=== PATIENT | male | born 1985 | race Caucasian/White ===

== ENCOUNTER 2022-09-08 07:38 | Inpatient (IN) ==
[2022-09-08] MEDS ORDERED: ASPIRIN CHEW 324 MG PO STA (08:01)
[2022-09-08] MEDS ORDERED: SODIUM CHLORIDE 0.9% 1000ML 1,000 ML IV STA (08:01)
--- NOTE | 2022-09-08 08:08 | Emergency Department Note ---
History of Present Illness General Chief complaint: Shoulder Pain Stated complaint: SEVERE SHOULDER PAIN Time Seen by Provider: 09/08/22 07:52 History of Present Illness Maximum Pain Intensity: 7 37-year-old male who presents to the emergency department for evaluation of severe bilateral shoulder pain. He also reports awakening around 4 AM this morning with abdominal cramping, mucus stools and some blood when wiping. The patient has not noticed any nausea, diaphoresis or dizziness. The patient reports that he did notice some discomfort in the center of his chest as well. He does report a strong family history of coronary artery disease. The patient denies any known history of heart disease, hyperlipidemia or hypertension. He does take medicine for anxiety. Patient also admits to being an alcoholic. Yesterday he drank 3 beers throughout the day, and had a mixed drink at bedtime. The patient denies any pain radiating into the back. He currently rates his discomfort a 7 out of 10, describing it is a pain that seems to move from his shoulders down into his arms. It does not extend into the neck, nor does he have a headache. He denies any shortness of breath. Home Medications Medication Instructions Recorded Confirmed Type escitalopram oxalate 10 mg tablet 10 mg PO 1XD 09/08/22 09/08/22 History Allergies Allergy/AdvReac Type Severity Reaction Status Date / Time Penicillins Allergy Unknown Verified 09/08/22 11:29 sertraline AdvReac Drowsy Verified 09/08/22 11:29 Past Med/Surg History Medical History Anxiety Surgical History No significant past surgical history Social History Smoking Status: Former smoker Second Hand Exposure: No; Do You Dip or Chew Tobacco: No; Tobacco Cessation Education Requested by Patient: No Hx Alcohol Use: Yes Alcohol type: beer and hard liquor Hx Substance Use: No Preferred Language: Icelandic Communication Ability: Effective Olive Brine Tester Required: No Beliefs That Will Affect Care: None marital status: Current Living Situation: Family current occupational status: employed Other Information That Helps Us Care for You: No Feels Safe at Home: Yes Safety Concerns: Feels Safe At This Time Assistive Devices: Glasses Review of Systems 10 system review was performed and was negative except for pertinent positives and negatives as indicated in history of present illness Physical Exam Vital Signs Vital Signs - 24 hr 09/08/22 07:44 09/08/22 08:01 09/08/22 08:49 Temperature 36.7 C Temperature Source Temporal Artery Scan Pulse Rate 92 H Pulse Rate [Apical] 73 Pulse Rate from SpO2 Sensor Respiratory Rate 20 18 Respiratory Effort / Characteristics Non-Labored Respiratory Depth Normal Respiratory Pattern Regular Blood Pressure 139/86 Blood Pressure [Left Arm] 132/98 Blood Pressure Mean 103 Blood Pressure Mean [Left Arm] 109 Blood Pressure Position Sitting Pulse Oximetry 99 98 98 Oxygen Delivery Method Room Air Room Air Nasal Cannula Oxygen Flow Rate 2 Sepsis Recent Fever Within 48 Hours No Sepsis New/Unexplained Change in Mental Status No Sepsis Action Taken by Nursing No Action Required 09/08/22 08:18 09/08/22 08:18 09/08/22 08:25 Temperature Temperature Source Pulse Rate 109 H 103 H Pulse Rate [Apical] Pulse Rate from SpO2 Sensor 112 H Respiratory Rate 18 24 Respiratory Effort / Characteristics Respiratory Depth Respiratory Pattern Blood Pressure 138/110 H Blood Pressure [Left Arm] Blood Pressure Mean 119 Blood Pressure Mean [Left Arm] Blood Pressure Position Pulse Oximetry 100 Oxygen Delivery Method Oxygen Flow Rate Sepsis Recent Fever Within 48 Hours Sepsis New/Unexplained Change in Mental Status Sepsis Action Taken by Nursing 09/08/22 08:25 09/08/22 08:30 09/08/22 08:30 Temperature Temperature Source Pulse Rate 108 H Pulse Rate [Apical] Pulse Rate from SpO2 Sensor Respiratory Rate 23 Respiratory Effort / Characteristics Respiratory Depth Respiratory Pattern Blood Pressure 137/87 132/90 Blood Pressure [Left Arm] Blood Pressure Mean 103 104 Blood Pressure Mean [Left Arm] Blood Pressure Position Pulse Oximetry Oxygen Delivery Method Oxygen Flow Rate Sepsis Recent Fever Within 48 Hours Sepsis New/Unexplained Change in Mental Status Sepsis Action Taken by Nursing 09/08/22 08:40 09/08/22 08:40 09/08/22 08:45 Temperature Temperature Source Pulse Rate 102 H 109 H Pulse Rate [Apical] Pulse Rate from SpO2 Sensor Respiratory Rate 20 15 Respiratory Effort / Characteristics Respiratory Depth Respiratory Pattern Blood Pressure 132/101 H Blood Pressure [Left Arm] Blood Pressure Mean 111 Blood Pressure Mean [Left Arm] Blood Pressure Position Pulse Oximetry Oxygen Delivery Method Oxygen Flow Rate Sepsis Recent Fever Within 48 Hours Sepsis New/Unexplained Change in Mental Status Sepsis Action Taken by Nursing CONSTITUTIONAL: Healthy and well nourished. Alert and oriented X 3. Patient appears in moderate discomfort. HEENT: Normocephalic, atraumatic. Pupils equal, round and reactive. No sc leral icterus or conjunctival injection/pallor. NECK: Full active range of motion without discomfort. LYMPHATICS: No cervical chain adenopathy. RESPIRATORY: Clear to auscultation bilaterally with no wheezing, crackles, rhonchi or stridor. CARDIOVASCULAR: Regular rate and rhythm with no murmurs, rubs or gallops. GASTROINTESTINAL: Bowel sounds present in all quadrants. Patient has mild upper abdominal tenderness to palpation without rigidity, guarding or rebound. No McBurney's point tenderness. Negative CVA tenderness. MUSCULOSKELETAL: Full range of motion of all joints without discomfort. No worsening discomfort with range of motion of the shoulders. No tenderness to palpation through the thoracolumbar spine. INTEGUMENTARY: No rash or other significant dermatologic conditions noted. HEMATOLOGIC: No ecchymosis or petechiae. PSYCHIATRIC: Positive affect. NEUROLOGIC: No focal neurologic deficits noted. Course Course Patient history and physical exam were performed. Nurses notes were reviewed for vital signs were reviewed, showing an elevated blood pressure. Patient is not tachycardic or febrile. IV access was established, and labs were drawn. The patient refused any analgesics or antiemetics. The patient was hydrated with a liter of normal saline. An ECG was performed, showing a STEMI. The patient was administered aspirin 324 mg chew. The patient was also ordered and administered Ativan 2 mg IVP after he started to develop hypertension and tachycardia from anxiety. The patient was placed on campus monitor. Review of labs showed a normal CBC. Coagulation studies and D-dimer were normal. CMP and lipase were grossly normal. High sensitive troponin was 1620.5. A portable vini st x-ray was normal. Immediately after seeing the patient's ECG, a heart code alert was called. The case was also discussed with Dr. Iraheta, ED attending physician, who also evaluated the patient. Dr. Iraheta also did a stool Hemoccult that was negative. Please see her dictation for further treatment provided and discussion with Dr. Dempsey with the Emergency Medical Service Coordinator. Please see hospitalist and c ardiology dictations for further treatment and final disposition. Administered Medications Sodium Chloride (Nss 1000ml) 1,000 mls @ 100 mls/hr IV .Q10H RODRÍGUEZ Stop: 09/08/22 19:44 Last Admin: 09/08/22 12:15 Dose: 100 mls/hr Documented By: ENRIKE Eptifibatide (Integrilin) 75 mg in 100 mls @ 0 mls/hr IV .Q0M [facility]; Protocol Stop: 09/09/22 06:14 Last Admin: 09/08/22 15:06 Dose: 2.03 mcg/kg/min, 15 mls/hr Documented By: ENRIKE Co-signed By: GRETEL Nitroglycerin/Dextrose (Nitroglycerin/D5w 100 Mcg/Ml) 250 mls @ 15 mls/hr IV .[id number] [facility]; Protocol Stop: 10/08/22 13:59 Last Titration: 09/08/22 14:26 Dose: 25 mcg/min, 15 mls/hr Documented By: Titration: 09/08/22 14:21 Dose: 20 mcg/min, 12 mls/hr Documented By: Titration: 09/08/22 14:16 Dose: 15 mcg/min, 9 mls/hr Documented By: Titration: 09/08/22 14:11 Dose: 10 mcg/min, 6 mls/hr Documented By: Admin: 09/08/22 14:06 Dose: 5 mcg/min, 3 mls/hr Documented By: ENRIKE Co-signed By: DULCE MARIA Metoprolol Tartrate (Metoprolol Tartrate 25 Mg Tab) 12.5 mg PO Q8 RODRÍGUEZ Stop: 10/08/22 13:59 Last Admin: 09/08/22 12:45 Dose: 12.5 mg Documented By: ENRIKE Miscellaneous (Icu Protocol For Hyperglycemia) 1 each N/A ACHS [facility] Stop: 09/10/22 11:29 Last Admin: 09/08/22 13:41 Dose: 1 each Documented By: ENRIKE Morphine Sulfate (Morphine Sulfate 2 Mg/Ml Carp) 2 mg IV Q4H PRN PRN Reason: Chest Pain Stop: 09/22/22 11:18 Last Admin: 09/08/22 13:26 Dose: 2 mg Documented By: Admin: 09/08/22 12:07 Dose: 2 mg Documented By: ENRIKE Discontinued Medications Aspirin (Aspirin Chew 324 Mg) 324 mg PO NOW STA Stop: 09/08/22 08:02 Last Admin: 09/08/22 08:23 Dose: 324 mg Documented By: SHEILA Eptifibatide (Eptifibatide 2 Mg/Ml 10 Ml Vial (Emergency Medical Service Coordinator Use Only)) Confirm Administered Dose 20 mg IV .STK-MED ONE Stop: 09/08/22 09:12 Last Admin: 09/08/22 10:57 Dose: 8.5 ml Documented By: MARGE Eptifibatide (Eptifibatide 0.75 Mg/Ml 75mg Vial (Emergency Medical Service Coordinator Use Only)) Confirm Administered Dose 75 mg IV .STK-MED ONE Stop: 09/08/22 09:12 Last Admin: 09/08/22 10:57 Dose: 75 mg Documented By: MARGE Eptifibatide (Eptifibatide 2 Mg/Ml 10 Ml Vial (Emergency Medical Service Coordinator Use Only)) Confirm Administered Dose 20 mg IV .STK-MED ONE Stop: 09/08/22 09:13 Last Admin: 09/08/22 10:58 Dose: 8.5 ml Documented By: MARGE Fentanyl Citrate (Fentanyl Citrate 100 Mcg/2 Ml Vial) Confirm Administered Dose 100 mcg .ROUTE .STK-MED ONE Stop: 09/08/22 08:34 Last Increment: 09/08/22 10:56 Dose: 75 mcg Documented By: MARGE Heparin Sodium (Porcine) (Heparin (Porcine) 1000 Unit/Ml 10 Ml (Emergency Medical Service Coordinator Use Only)) Confirm Administered Dose 10,000 units .ROUTE .STK-MED ONE Stop: 09/08/22 08:33 Last Admin: 09/08/22 10:56 Dose: 10,000 units Documented By: MARGE Heparin Sodium/Sodium Chloride (Heparin In Nss Infusion 1000 Unit/500 Ml (2 U/Ml) Bag) Confirm Administered Dose 3,000 units IV .STK-MED ONE Stop: 09/08/22 08:34 Last Admin: 09/08/22 10:57 Dose: 3,000 units Documented By: MARGE Sodium Chloride (Nss 1000ml) 1,000 mls @ 999 mls/hr IV .Q1H1M STA Stop: 09/08/22 09:01 Last Admin: 09/08/22 08:21 Dose: 999 mls/hr Documented By: SHEILA Famotidine 20 mg/ Syringe 5 mls @ 2.5 mls/min IV NOW STA Stop: 09/08/22 08:21 Last Admin: 09/08/22 13:43 Dose: Not Given Documented By: ENRIKE Lidocaine HCl (Lidocaine 1% Local 20 Ml Vial) Confirm Administered Dose 60 ml .ROUTE .STK-MED ONE Stop: 09/08/22 08:48 Last Admin: 09/08/22 12:15 Dose: Not Given Documented By: ENRIKE Lorazepam (Lorazepam 1 Mg/1 Ml Syr) 1 mg IV NOW STA; Protocol Stop: 09/08/22 08:16 Last Admin: 09/08/22 08:35 Dose: 1 mg Documented By: DUDLEY Lorazepam (Lorazepam 1 Mg/1 Ml Syr) 1 mg IV NOW STA; Protocol Stop: 09/08/22 08:21 Last Admin: 09/08/22 08:23 Dose: 1 mg Documented By: SHEILA Midazolam HCl (Midazolam Hcl 1 Mg/Ml 2ml Vial) Confirm Administered Dose 2 mg .ROUTE .STK-MED ONE Stop: 09/08/22 08:34 Last Admin: 09/08/22 10:57 Dose: 2 mg Documented By: MARGE Miscellaneous (Stat Iv Infusion Titration Per Protocol) 1 each N/A NOW STA Stop: 09/08/22 13:53 Last Admin: 09/08/22 14:09 Dose: 1 each Documented By: ENRIKE Nicardipine HCl (Nicardipine Hcl Inj 2.5 Mg/Ml 10 Ml Amp) Confirm Administered Dose 25 mg .ROUTE .STK-MED ONE Stop: 09/08/22 08:33 Last Admin: 09/08/22 10:56 Dose: 25 mg Documented By: MARGE Nitroglycerin (Nitroglycerin Sl 0.4 Mg/Tab Tab) Confirm Administered Dose 0.4 mg .ROUTE .STK-MED ONE Stop: 09/08/22 08:20 Last Admin: 09/08/22 08:21 Dose: 0.4 mg Documented By: SHEILA Nitroglycerin (Nitroglycerin Sl 0.4 Mg/Tab Tab) Confirm Administered Dose 0.4 mg .ROUTE .STK-MED ONE Stop: 09/08/22 13:22 Last Admin: 09/08/22 13:23 Dose: 0.4 mg Documented By: ENRIKE Nitroglycerin/Dextrose (Nitroglycerin/D5w 100mcg/Ml 20ml Syr) Confirm A dministered Dose 2,000 mcg .ROUTE .STK-MED ONE Stop: 09/08/22 08:34 Last Admin: 09/08/22 10:57 Dose: 2,000 mcg Documented By: MARGE Nitroglycerin/Dextrose (Nitroglycerin/D5w 100 Mcg/Ml Btl) Confirm Administered Dose 25 mg .ROUTE .STK-MED ONE Stop: 09/08/22 14:00 Last Admin: 09/08/22 14:09 Dose: Not Given Documented By: ENRIKE Ticagrelor (Ticagrelor 90 Mg Tab) Confirm Administered Dose 180 mg .ROUTE .STK- MED ONE Stop: 09/08/22 09:00 Last Admin: 09/08/22 10:57 Dose: 180 mg Documented By: MARGE Critical Care Time Critical Care Time: Yes Total Critical Care Time: 35 I have personally spent approximately 35 minutes of critical care time in the direct management of this patient. This includes bedside care, interpretation of diagnostic studies, and testing, discussion with consultants, patient, and family members, and other required patient management activities. This 35 minutes is in excess of all separately billable procedures. Medical Decision Making Medical Records Attestation: I reviewed the patient's medical records. Home Medications Current Medication List: was personally reviewed by me Laboratory Data Attestation: I reviewed the patient's lab results. Result diagrams: 09/08/22 08:15 09/08/22 08:15 Lab Results 09/08/22 09/08/22 09/08/22 Range/Units 08:15 08:15 08:15 WBC 9.74 (4.8-10.8) K/ul RBC 5.20 (4.63-6.08) M/uL Hgb 15.6 (14.0-18.0) g/dl Hct 44.8 (40.1-51.0) % MCV 86.2 (80.0-100.0) fL MCH 30.0 (25.0-34.0) pg MCHC 34.8 (32.0-36.0) g/dL RDW Std Deviation 40.8 (36.4-46.3) fL RDW Coeff of Jem 13.0 (11.5-14.5) % Plt Count 255 (130-400) K/uL MPV 10.5 (9.4-12.4) fL Immature Gran % (Auto) 0.3 % Neut % (Auto) 77.4 % Lymph % (Auto) 14.8 % [place] % (Auto) 6.4 % Eos % (Auto) 0.7 % Baso % (Auto) 0.4 % Neut # (Auto) 7.54 H (1.4-6.5) K/uL Lymph # (Auto) 1.44 (1.2-3.4) K/uL [place] # (Auto) 0.62 (0.24-0.82) K/uL Eos # (Auto) 0.07 (0-0.50) K/uL Baso # (Auto) 0.04 (0-0.2) K/uL Immature Gran # (Auto) 0.03 H (0.00-0.02) K/uL PT 11.1 (9.0-12.0) Seconds INR 1.0 (0.9-1.1) APTT 23.1 (21.0-31.0) Seconds PTT Ratio 0.8 Activ Coag Time Kaolin (94-140) SECONDS D-Dimer < 190 (0-500) ug/L FEU Sodium 137 (136-145) mmol/L Potassium 3.7 (3.5-5.1) mmol/L Chloride 102 (98-107) mmol/L Carbon Dioxide 21 (21-32) mmol/L Anion Gap 14 H (3-11) BUN 14 (6-23) mg/dl Creatinine 0.91 (0.6-1.4) mg/dl Est Cr Clr Drug Dosing 131.6 ml/min Est GFR ( Amer) 126.1 ml/min Est GFR (Non-Af Amer) 108.8 ml/min BUN/Creatinine Ratio 15.4 (10-20) Glucose 110 H (70-99(Fasting)) mg/dl Calcium 10.9 H (8.5-10.1) mg/dl Total Bilirubin 0.6 (0.2-1.0) mg/dl AST 31 (13-39) U/L ALT 46 (7-52) U/L Alkaline Phosphatase 81 (34-104) U/L Troponin I High Sens 97.7 H* (0-20) pg/ml Total Protein 8.1 (6.0-8.3) gm/dl Albumin 4.8 (3.4-5.0) gm/dl Globulin 3.3 (2.5-4.0) gm/dl Albumin/Globulin Ratio 1.5 (0.9-2) Lipase 20 (11-82) U/L SARS-CoV-2 (PCR) (Negative) Influenza Type A (PCR) (Neg) Influenza Type B (PCR) (Neg) RSV (RT-PCR) (Neg) 09/08/22 09/08/22 Range/Units 08:40 09:32 WBC (4.8-10.8) K/ul RBC (4.63-6.08) M/uL Hgb (14.0-18.0) g/dl Hct (40.1-51.0) % MCV (80.0-100.0) fL MCH (25.0-34.0) pg MCHC (32.0-36.0) g/dL RDW Std Deviation (36.4-46.3) fL RDW Coeff of Jem (11.5-14.5) % Plt Count (130-400) K/uL MPV (9.4-12.4) fL Immature Gran % (Auto) % Neut % (Auto) % Lymph % (Auto) % [place] % (Auto) % Eos % (Auto) % Baso % (Auto) % Neut # (Auto) (1.4-6.5) K/uL Lymph # (Auto) (1.2-3.4) K/uL [place] # (Auto) (0.24-0.82) K/uL Eos # (Auto) (0-0.50) K/uL Baso # (Auto) (0-0.2) K/uL Immature Gran # (Auto) (0.00-0.02) K/uL PT (9.0-12.0) Seconds INR (0.9-1.1) APTT (21.0-31.0) Seconds PTT Ratio Activ Coag Time Kaolin 329 H (94-140) SECONDS D-Dimer (0-500) ug/L FEU Sodium (136-145) mmol/L Potassium (3.5-5.1) mmol/L Chloride (98-107) mmol/L Carbon Dioxide (21-32) mmol/L Anion Gap (3-11) BUN (6-23) mg/dl Creatinine (0.6-1.4) mg/dl Est Cr Clr Drug Dosing ml/min Est GFR ( Amer) ml/min Est GFR (Non-Af Amer) ml/min BUN/Creatinine Ratio (10-20) Glucose (70-99(Fasting)) mg/dl Calcium (8.5-10.1) mg/dl Total Bilirubin (0.2-1.0) mg/dl AST (13-39) U/L ALT (7-52) U/L Alkaline Phosphatase (34-104) U/L Troponin I High Sens (0-20) pg/ml Total Protein (6.0-8.3) gm/dl Albumin (3.4-5.0) gm/dl Globulin (2.5-4.0) gm/dl Albumin/Globulin Ratio (0.9-2) Lipase (11-82) U/L SARS-CoV-2 (PCR) NEGATIVE (Negative) Influenza Type A (PCR) Negative (Neg) Influenza Type B (PCR) Negative (Neg) RSV (RT-PCR) Negative (Neg) Imaging Data Attestation: I personally reviewed and interpreted this imaging study as follows: My Impression: Single view chest x-ray does not show evidence for lung consolidations, pneumothorax or cardiac prominence. Radiologist report was also reviewed. Radiologist's Impression: Chest X-Ray 09/08/22 08:03 SINGLE VIEW CHEST CLINICAL HISTORY: Atypical chest pain. Diarrhea FINDINGS: An AP, portable, upright chest radiograph is obtained. No prior studies are available for comparison at the time of dictation. The examination is degraded by portable technique and apical lordotic positioning. The cardiomediastinal silhouette is unremarkable. The lungs and pleural spaces are clear. No pneumothorax is seen. The bony thorax is grossly intact. IMPRESSION: No acute cardiopulmonary abnormality. ACT 112: Negative or not required by law. Electronically signed by: Shen Smith M.D. 09/08/2022 8:42 AM ECG Data Attestation: I personally reviewed and interpreted this ECG as follows: Indication: + abdominal pain and + chest pain Rate (beats per minute): 85 Rhythm: + sinus with SA ECG ST segments: + ST elevation (Anterolateral) Comparison ECG Date: no prior available Blood Pressure Blood Pressure Findings: Elevated blood pressure Blood Pressure Disposition: elevated BP felt to be situational MDM Narrative Cardiac monitoring: An order was placed for continuous cardiac monitoring. The monitor shows an initial rate of 85 bpm with a STEMI. hall monitor history was reviewed throughout the evaluation, and no additional dysrhythmias were noted. Patient presents the emergency department with complaint of bilateral shoulder pain. His ECG shows evidence for STEMI. The patient was administered oral aspirin. Further heparin or other blood thinners were deferred to cardiology service. Additional work-up today does not show evidence for obvious cardiac failure, pneumonia, pneumothorax, electrolyte abnormality, pancreatitis, cholecystitis or hepatitis. Impression & Plan STEMI (ST elevation myocardial infarction), Bilateral shoulder pain, Rectal bleed Discharge Plan Visit Data Chief Complaint: Shoulder Pain Stated Complaint: SEVERE SHOULDER PAIN ED Provider: Lona Iraheta ED Midlevel Provider: Rober Haywood Discharge Problem: STEMI (ST elevation myocardial infarction), Bilateral shoulder pain, Rectal bleed Discharge Instructions Interventions: ED Discharge Assessment Last Done: 09/08/22 08:57
[2022-09-08] MEDS ORDERED: LORazepam 1 MG/1 ML SYR IV STA ×2 (08:15→08:20)
[2022-09-08] MEDS ORDERED: NITROGLYCERIN SL 0.4 MG/TAB TAB ONE ×2 (08:19→13:21)
[2022-09-08] MEDS ORDERED: FAMOTIDINE 20 MG in SYRINGE 3 ML IV STA (08:20)
[2022-09-08 08:26] LABS: Basophils # (auto) 0.04 K/uL (0-0.2); Basophils % (auto) 0.4 %; Eosinophils # (auto) 0.07 K/uL (0-0.50); Eosinophils % (auto) 0.7 %; Hematocrit (blood only) 44.8 % (40.1-51.0); Hemoglobin 15.6 g/dl (14.0-18.0); Immature Granulocytes # (auto) 0.03 K/uL (0.00-0.02); Immature Granulocytes % (auto) 0.3 %; Lymphocytes # (auto) 1.44 K/uL (1.2-3.4); Lymphocytes % (auto) 14.8 %; Mean Corpuscular Hgb Conc 34.8 g/dL (32.0-36.0); Mean Corpuscular Volume 86.2 fL (80.0-100.0); Mean Platelet Volume 10.5 fL (9.4-12.4); Monocytes # (auto) 0.62 K/uL (0.24-0.82); Monocytes % (auto) 6.4 %; Neutrophils # (auto) 7.54 K/uL (1.4-6.5); Neutrophils % (auto) 77.4 %; Platelet Count 255 K/uL (130-400); RDW Standard Deviation 40.8 fL (36.4-46.3); White Blood Count 9.74 K/ul (4.8-10.8)
[2022-09-08] MEDS ORDERED: niCARdipine HCL INJ 2.5 MG/ML 10 ML AMP ONE (08:32)
[2022-09-08] MEDS ORDERED: HEPARIN (PORCINE) 1000 UNIT/ML 10 ML (CATH LAB USE ONLY) ONE (08:32)
[2022-09-08] MEDS ORDERED: fentaNYL citrate 100 MCG/2 ML VIAL ONE (08:33)
[2022-09-08] MEDS ORDERED: MIDAZOLAM HCL 1 MG/ML 2ML VIAL ONE (08:33)
[2022-09-08] MEDS ORDERED: NITROGLYCERIN/D5W 100MCG/ML 20ML SYR ONE (08:33)
[2022-09-08 08:38] LABS: D Dimer < 190 ug/L FEU (0-500); Partial Thromboplastin Ratio 0.8; Partial Thromboplastin Time 23.1 Seconds (21.0-31.0); Prothrombin Time 11.1 Seconds (9.0-12.0)
--- NOTE | 2022-09-08 08:45 | XRay Report ---
SINGLE VIEW CHEST CLINICAL HISTORY: Atypical chest pain. Diarrhea FINDINGS: An AP, portable, upright chest radiograph is obtained. No prior studies are available for c omparison at the time of dictation. The examination is degraded by portable technique and apical lord otic positioning. The cardiomediastinal silhouette is unremarkable. The lungs and pleural spaces are clear. No pneumothorax is seen. The bony thorax is grossly intact. IMPRESSION: No acute cardiopulmonary abnormality. ACT 112: Negative or not required by law. Electronically signed by: Shen Smith M.D. 09/08/2022 8:42 AM
[2022-09-08] MEDS ORDERED: LIDOCAINE 1% LOCAL 20 ML VIAL ONE (08:47)
[2022-09-08 08:57] LABS: Albumin Globulin Ratio 1.5 (0.9-2); Albumin Level 4.8 gm/dl (3.4-5.0); BUN Creatinine Ratio 15.4 (10-20); Bilirubin,Total 0.6 mg/dl (0.2-1.0); Calcium 10.9 mg/dl (8.5-10.1); Creatinine Clr Calc Pharmacy 131.6 ml/min; Est GFR (African American) 126.1 ml/min; Est GFR (Non-African American) 108.8 ml/min; Globulin 3.3 gm/dl (2.5-4.0); Potassium 3.7 mmol/L (3.5-5.1); Total Protein 8.1 gm/dl (6.0-8.3)
[2022-09-08] MEDS ORDERED: TICAGRELOR 90 MG TAB ONE (08:59)
--- NOTE | 2022-09-08 09:02 | Pre Anesthesia Assessment ---
Date of Service September 08, 2022 Pre Sedation Assessment Vital Signs Temp Pulse Pulse Resp BP BP Pulse Ox 09/08/22 08:49 73 18 132/98 98 09/08/22 08:01 98 09/08/22 07:44 98.1 F 92 H 20 139/86 99 O2 Del Method O2 Flow Rate 09/08/22 08:49 Nasal Cannula 2 09/08/22 08:01 Room Air 09/08/22 07:44 Room Air Cardiovascular RRR, no murmur, no edema Respiratory normal respiratory effort, lungs clear to auscultation Pre-Sedation Airway Assessment Smoking Status: Former smoker Hx Sleep Apnea: No Hx Difficult Intubation: No Short, Thick Neck: No Thyromental Distance: > or= 3.5 Finger Breadths Mallampati Class: III ASA: ASA4 Procedure Planning Contraindications for Sedation: none Current Medications Reviewed: Yes Notes The planned sedation has been discussed with the patient. Informed Consent was obtained. I have identified the patient, determined the appropriateness of sedation and have assessed the patient immediately prior to the procedure. All medicine(s) and interventions are by my order.
[2022-09-08 09:08] LABS: Troponin I High Sensitivity 97.7 pg/ml (0-20)
[2022-09-08] MEDS ORDERED: EPTIFIBATIDE 2 MG/ML 10 ML VIAL (CATH LAB USE ONLY) IV ONE ×2 (09:11→09:12)
[2022-09-08] MEDS ORDERED: EPTIFIBATIDE 0.75 MG/ML 75MG VIAL (CATH LAB USE ONLY) IV ONE (09:11)
[2022-09-08 10:02] LABS: Influenza A virus by PCR Negative (Neg); Influenza B virus by PCR Negative (Neg); RSV by PCR Negative (Neg); SARS CoV2 RNA(COVID-19) Ceph NEGATIVE (Negative)
[2022-09-08] MEDS ORDERED: ONDANSETRON INJ 2 MG/ML 2 ML VIAL IV PRN (10:35)
[2022-09-08] MEDS ORDERED: EPTIFIBATIDE BOLUS/DRIP IV STA (10:35)
[2022-09-08] MEDS ORDERED: STAT IV Infusion **Titration per Protocol STA ×2 (10:35→13:52)
[2022-09-08] MEDS ORDERED: Patient's ALLERGY Info needs ENTERED SCH (11:00)
[2022-09-08] MEDS ORDERED: LORazepam 0.5 MG TAB PO PRN (11:00)
--- NOTE | 2022-09-08 11:00 | Cardiology Consultation ---
Date of Consultation September 08, 2022 Assessment & Plan (1) STEMI (ST elevation myocardial infarction): Plan Presentation consistent with anterior STEMI with suspected occlusion in wraparound LAD. Recommend proceeding with emergent cardiac catheterization and likely primary PCI. No apparent contraindications to procedure. Discussed risks, benefits, alternatives of procedure with patient and they are willing to proceed. Further recommendations pending findings of coronary angiography. History of Present Illness History of Present Illness 37-year-old man here with acute chest pain and ECG concerning for acute OH. Patient seen emergently in the ED after heart alert activated upon arrival. No prior cardiac history. Cardiac risk factors include prior tobacco use. Reports his father had heart issues but unsure exactly what they were. Other medical issues include anxiety, heavy alcohol use. Woke up this morning around 4 AM, with bilateral shoulder pain, diarrhea and feeling generally unwell. Eventually symptoms progressed with numbness in his arms (R>L) and some substernal chest pain. Arrived in ED approximately 4 hours after symptom onset. ECG showed sinus rhythm with anterior ST elevations and subtle inferior ST elevations. Hemodynamically stable. Given nitroglycerin, Ativan, aspirin in ED. Social history: , 2 kids ages 4 and 5, with twins. Works for a local [employer]. Intermittent tobacco use history. Last smoked about 5 months ago. Ongoing heavy alcohol use Patient History Medical History Anxiety Surgical History No significant past surgical history Social History Smoking Status: Former smoker Hx Alcohol Use: Yes Beliefs That Will Affect Care: Spiritual marital status: Current Living Situation: Spouse and Family current occupational status: employed Feels Safe at Home: Yes Review of Systems Review of Systems: Not completed in the setting of emergent situation Physical Exam Physical Exam: General: Uncomfortable HEENT: Sclerae anicteric Lungs: Clear anteriorly Cardiac: Tachycardic, regular Vascular: 2+ radial Abdomen: Soft, nontender Extremities: Well perfused, no peripheral edema Neuro: Nonfocal Psych: Alert orient x3, normal affect and mood Results & Data ([facility]) Vital Signs (Past 12 Hours) Vital Signs Temp Pulse Pulse Resp BP BP Pulse Ox 09/08/22 08:49 73 18 132/98 98 09/08/22 08:01 98 09/08/22 07:44 98.1 F 92 H 20 139/86 99 O2 Del Method O2 Flow Rate 09/08/22 08:49 Nasal Cannula 2 09/08/22 08:01 Room Air 09/08/22 07:44 Room Air PG Care Time/CCT Total # of Minutes Spent Total Time Spent with Patient: Total time spent is greater than 50% in coordination of care (as documented) at patient's floor/unit and/or counseling patient: Coding Level of Care Code 18349 Inpt Consult Level 4 Diagnoses STEMI (ST elevation myocardial infarction) I21.3
--- NOTE | 2022-09-08 11:01 | Post Anesthesia Assessment ---
Date of Service September 08, 2022 Post Sedation Assessment Vital Signs Temp Pulse Pulse Resp BP BP Pulse Ox 09/08/22 08:49 73 18 132/98 98 09/08/22 08:01 98 09/08/22 07:44 98.1 F 92 H 20 139/86 99 O2 Del Method O2 Flow Rate 09/08/22 08:49 Nasal Cannula 2 09/08/22 08:01 Room Air 09/08/22 07:44 Room Air Recovery Score Activity: Moves 4 extremities Respiration: Deep Breath/Cough Circulation: +/-20% PreAnes Value Consciousness: Fully Awake Oxygen Saturation: O2 needed for >90% Discharge Sedation Level of Care: Fast Track Phase II Post Sedation Plan On clinical assessment, the patient appears to have tolerated the sedation without complications. Patient is recovering as anticipated. Patient will continue to be monitored by nursing and may be discharged when sedation discharge criteria are met per below protocol. Upon Completions of procedure up to 15 minutes continue every 5 minute vital signs and the P.A.R. score; then discharge to a Phase I or Fast Track to Phase II per the following guidelines: * Discharge Patient to appropriate Phase II area if PAR is 8 or greater or return to pre- procedure baseline. The post - procedure orders will be as d irected. * If PAR score is less than 8 or not return to pre-procedure baseline then patient will follow Phase I monitoring till PAR is reached for Phase II. The Phase I may be done in procedure room or may call to secure a Phase I area. * If naloxone or flumazenil are used for reversal, hold in Phase I for continued monitoring from when last reversal dose was given for a minimum of 60 minutes or longer pending the nurse and/or physician discretion of patient condition before discharge to Phase II. Please call the Sedation Physician to re-evaluate and complete post-note for discharge to Phase II area. Do NOT discharge from procedure sedation or Phase 1 until post- sedation evaluation note is complete by procedure /sedation MD Sedation Discharge Instructions to be given to the patient at discharge to home.
--- NOTE | 2022-09-08 11:05 | History & Physical Report ---
Date of Service September 08, 2022 Assessment & Plan (1) STEMI (ST elevation myocardial infarction): Plan: Patient is status post heart alert with drug-eluting stent to the mid LAD. Patient has distal apical thrombus. Dr. Dempsey is assisting in co managing this patient, will remain on Integrilin for 6 hours Patient is on aspirin plus Brilinta, metoprolol tartrate 125 every 8 and Cozaar 25 and atorvastatin 80 Pending hemoglobin A1c Trend troponins till peak (2) Alcohol use: Plan: Patient has a history of alcohol use we will watch him for signs of withdrawal, patient says sometimes gets shaky in the morning when he does not drink the day before (3) Anxiety: Plan: Patient typically is on no home medications will have as needed Ativan both for anxiety and alcohol withdrawal possibility Admission and Anticipated Discharge Date Admission Date: September 08, 2022 History of Present Illness Chief Complaint: 37-year-old male presents to the ER on 09/08/2022 with severe bilateral shoulder pain that awoke him from sleep around 4 AM patient has a history of alcohol abuse and anxiety initial troponin was 97.7, initial EKG had ST elevation inferiorly and laterally with reciprocal changes. Patient was taken to Power Superintendent under heart alert status for acute RI, patient received 1 drug-eluting stent to the early mid LAD but he has heavy clot burden remained hemodynamically stable although has residual thrombus in the apical LAD. Patient was taken to the ICU post procedure Primary Care Provider: NO PCP Allergies Allergy/AdvReac Type Severity Reaction Status Date / Time Penicillins Allergy Unknown Verified 09/08/22 11:29 sertraline AdvReac Drowsy Verified 09/08/22 11:29 Past Med/Surg History Medical History Anxiety Surgical History No significant past surgical history Social History Smoking Status: Former smoker Hx Alcohol Use: Yes Beliefs That Will Affect Care: Spiritual marital status: Current Living Situation: Spouse and Family current occupational status: employed Feels Safe at Home: Yes Review of Systems Review of Systems: Mild distress and fatigue no headache, no visual changes no speech or swallowing issues Still having some residual chest pain, not described as pressure or palpitations no shortness of breath, cough or wheezes no abdominal pain, nausea or vomiting, diarrhea or constipation no dysuria, hematuria or frequency no focal joint pain or swelling no back pain, CVA tenderness or radicular pain T band in place on his right wrist no focal signs of weakness or numbness or altered sensation no complaints of anxiety or depression.. Physical Exam Physical Exam: The patient appeared well nourished and normally developed. Vital signs as documented. Head exam is normocephalic atraumatic Neck is without JVD, thyromegaly, or carotid bruits. Lungs are clear to auscultation, no focal loss of breath sounds Cardiac exam, Rhythm is regular.. No murmurs, rubs or gallops. Abdominal exam reveals normal bowel sounds, soft non tender, no masses Extremities are nonedematous and both pedal pulses are present Right hand has good distal capillary refill and sensation Neurologic exam is alert and oriented, no focal loss of strength or sensation Skin is without bruises or rashes Psychologically is without concerns for anxiety or depression.. Results & Data Results & Data ([facility]) Vital Signs (Past 12 Hours) Vital Signs Temp Pulse Pulse Resp BP BP Pulse Ox 09/08/22 08:49 73 18 132/98 98 09/08/22 08:01 98 09/08/22 07:44 98.1 F 92 H 20 139/86 99 O2 Del Method O2 Flow Rate 09/08/22 08:49 Nasal Cannula 2 09/08/22 08:01 Room Air 09/08/22 07:44 Room Air Diagnostic Findings Chest X-Ray 09/08/22 08:03 SINGLE VIEW CHEST CLINICAL HISTORY: Atypical chest pain. Diarrhea FINDINGS: An AP, portable, upright chest radiograph is obtained. No prior studies are available for comparison at the time of dictation. The examination is degraded by portable technique and apical lordotic positioning. The cardiomediastinal silhouette is unremarkable. The lungs and pleural spaces are clear. No pneumothorax is seen. The bony thorax is grossly intact. IMPRESSION: No acute cardiopulmonary abnormality. Electronically signed by: Shen Smith M.D. 09/08/2022 8:42 AM ECG Additional Comments: Normal sinus rhythm with ST elevation inferior laterally with some reciprocal T wave inversion this is preprocedure Code Status & VTE Plan VTE Prophylaxis Plan VTE Prophylaxis will be ordered: Yes PG Care Time/CCT Total # of Minutes Spent Total Time Spent with Patient: Total time spent is greater than 50% in coordination of care (as documented) at patient's floor/unit and/or counseling patient: Coding Level of Care Code 95700 Initial Inpt Care Lvl 2 Diagnoses STEMI (ST elevation myocardial infarction) I21.3 Alcohol use Z78.9 Anxiety F41.9
--- NOTE | 2022-09-08 11:17 | Cardiac Catheterization ---
[facility] Data: Service Operations Manager Cardiac Status Clinical evaluation leading to the procedure CAD Presenation: STEMI Anginal Classification: CCS IV Diagnostic Physicians Name: Joseph Dempsey MD Closure Device Recommendations: PCI without planned CABG Cardiac Cath Procedure Full Procedure Date September 08, 2022 Pre-Procedure Diagnosis Pre-Procedure Diagnosis: STEMI AUC Score AUC Score: 9 Post-Procedure Diagnosis Post-Procedure Diagnosis: Severe CAD, Successful PCI and Normal Intracardiac Pressures Procedure(s) Performed Procedure(s) Performed: Coronary Angiography, Left Heart Cath, Drug Eluting Stent and IVUS Fund Controller Joseph Dempsey MD Estimated Blood Loss Estimated Blood Loss: 20 Medication(s) Medication(s): Fentanyl, Heparin, Integrilin, Lidocaine 1%, Nicardipine, Nitroglycerin and Versed Medication(s): Ticagrelor Summary of Findings Indication: STEMI/Heart Alert Access: 6 Fr right radial artery Catheters: EBU 3.5 guide, diagnostic JR4 Findings: LM -normal caliber, no significant disease LAD -large caliber, 95% earlymid stenosis with LV thrombus burden and COLLEEN II distal flow. Apical LAD 100% occluded. Medium D1, D2 without significant disease. Circumflex -medium caliber, angiographically normal RCA -dominant, large caliber, no significant disease LVEDP -11 -- PCI -- Antithrombotic therapy: Heparin, ticagrelor, Integrilin Procedure: Left main cannulated with EBU 3.5 guide BMW wire passed across lesion into distal vessel Mid LAD lesion predilated with 2.5 compliant balloon Apical LAD gently dilated with 2.0 balloon Due to heavy thrombus burden IC Integrilin administered [place] wire placed into first diagonal [place] IVUS catheter used to assess extent of disease, vessel sizing Pullback revealed localized thrombus and earlymid segment just after takeoff of D1. No other significant proximal LAD, left main disease. Dilated lesion stented with 4.0 x 18 mm [place] drug-eluting stent beginning just after takeoff of D1 Stent post-dilated with 4.5 noncompliant balloon IC vasodilators administered for spasm COLLEEN-3 flow through stent but residual apical LAD occlusion Repeat IVUS assessment of apical LAD revealed no significant atherosclerosis or thrombus to apex. Wire exchanged for long BMW and additional vasodilators administered to apical vessel via OTW balloon Gentle balloon inflation along entire length of apical LAD. Minimal extension of contrast around apex Patient chest pain-free at this time decision made to complete procedure and continue IV Integrilin Post procedure COLLEEN 3 flow to distal LAD, stent well expanded with minimal residual stenosis. Arterial Closure: TR band Summary: 1. Anterior STEMI 2. 95% acute earlymid LAD with heavy thrombus burden and occluded LAD at the apex 3. No significant non-culprit vessel coronary artery disease 4. Normal intracardiac filling pressure 5. PCI of earlymid LAD with single drug-eluting stent (4.0 x 18 mm [place]; postdilated with 4.5 NC). Residual thrombus in apical LAD despite IC vasodilators/apical LAD angioplasty Recommendations: Admit to ICU for continued monitoring Loaded with ticagrelor 180 mg in Service Operations Manager Continue Integrilin for 6 hours Continue dual-antiplatelet therapy for at least 1 year. Trend troponins until peak, Check Echo Uptitrate beta-nick/ARB as BP allows High-dose statin Consult cardiac Rehab Hemodynamics Rest Ao:: 116/81/101 Final Ao: 119/85/100 LV: 111/11 Recommendations Recommendations: PCI without planned CABG Specimens Specimens: None Radiation Exposure (mGy) 2728 Contrast (mls) 120 Anesthesia Moderate [id number] Procedural Complication(s) None Disposition ICU I attest to the content of the Intraoperative Record and any orders documented therein. Any exceptions are noted below. [facility] Card Cath Procedure Codes Cardiac Catheterization Procedure 1: Cardiovascular Cath Procedures: 21139 Coronaries and LHC (+/-LV) Therapeutic Services & Ancillary Procedure 1: Cardiovascular Tx and Anc Procedures: 76452 IV Ultrasound (Coronary or Graft) Moderate Sedation Procedure 1: Sedation/Anesthesia: 69513 Mod Sedation by the same physician;Init15 Min Child Age 5 & Up Procedure 2: Sedation/Anesthesia: 95017 Mod Sedation by the same physician; Ea [id number] Minutes Stenting Procedure 1: Cardiovascular Stent Procedures: 90525 Perc transluminal revascularization of acute sub/total occl, aMI PG Care Time/CCT Total # of Minutes Spent Total Time Spent with Patient: Total time spent is greater than 50% in coordination of care (as documented) at patient's floor/unit and/or counseling patient:
[2022-09-08] MEDS ORDERED: ICU Protocol for HYPERglycemia SCH (11:30)
[2022-09-08] MEDS: MoRPHine SULFATE 2 MG/ML CARP IV PRN ×4 (12:07→20:24)
[2022-09-08] MEDS ORDERED: SODIUM CHLORIDE 0.9% 1000ML 1,000 ML IV SCH (12:15)
[2022-09-08] MEDS: METOPROLOL TARTRATE 25 MG TAB PO SCH ×2 (12:45→21:30)
--- NOTE | 2022-09-08 13:00 | Critical Care Consultation ---
Date of Consultation September 08, 2022 Assessment & Plan (1) STEMI (ST elevation myocardial infarction): Plan Impression: 37-year-old male without significant past medical history presents with acute coronary syndrome status post drug-eluting stent to the mid LAD with residual thrombus. He is currently having residual chest pain here in the ICU. Recommendations: 1. ST elevation myocardial infarction status post drug-eluting stent. Continue Integrilin for the distal thrombus. He is on Brilinta and aspirin. He is having residual chest pain. We will provide morphine now and follow. If he has continued chest pain, I will repeat his EKG and discussed with cardiology althou gh not unexpected to have residual pain given the distal thrombus. He is hemodynamically stable. 2. We will uptitrate metoprolol and add WILD inhibitor as tolerated. Statin per cardiology. 3. Await echocardiogram. Trend troponins. 4. Advised the patient that I would not recommend nicotine replacement in the setting of acute coronary syndrome. Smoking cessation recommended. 5. We will continue to observe in the ICU 24 hours postcardiac catheterization. Thanks for the opportunity participating in the care of this patient. Feel free to contact us with questions or concerns History of Present Illness Attending Physician: Braydon Jacob MD History of Present Illness Asked by blade operator to assist in evaluation management this patient presenting with acute coronary syndrome status post drug-eluting stent to the LAD. History is obtained from review electronic medical record as well as discussion with the patient his at bedside. The patient is a 37-year-old male with a remote history of tobacco abuse who presented to the emergency room this morning with bilateral shoulder pain. He also had chest discomfort. EKG showed findings concerning for ST elevation myocardial infarction and heart alert was called. He was taken to the Measurement Operator. Cardiac catheterization showed a 95% mid stenosis with thrombus and a 100% occlusion of the apical LAD. Patient underwent PCI with drug-eluting stent to the mid LAD. The patient had residual thrombus in the apical LAD despite intracoronary vasodilators and angioplasty. He was loaded on Brilinta and started on Integrilin with plans to continue that for 6 hours. Aspirin was also used. He was started on a beta-nick ARB with echocardiogram and serial troponins and high-dose statin to follow. When I assessed the patient continues to complain of chest pain. He states he is never really been pain-free. He is not yet received morphine. In addition he is hypertensive and has not yet received his metoprolol dose. 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 No significant exposures. He does have a family history of coronary disease but this manifested in his father in his 50s. Allergies Allergy/AdvReac Type Severity Reaction Status Date / Time Penicillins Allergy Unknown Verified 09/08/22 11:29 sertraline AdvReac Drowsy Verified 09/08/22 11:29 Home Medications Medication Instructions Recorded Confirmed Type escitalopram oxalate 10 mg tablet 10 mg PO 1XD 09/08/22 09/08/22 History Patient History Medical History Anxiety Surgical History No significant past surgical history Social History Smoking Status: Former smoker Second Hand Exposure: No; Do You Dip or Chew Tobacco: No; Tobacco Cessation Education Requested by Patient: No Hx Alcohol Use: Yes Alcohol type: beer and hard liquor Hx Substance Use: No Preferred Language: Chinese Communication Ability: Effective Explosives Handler Required: No Beliefs That Will Affect Care: None marital status: Current Living Situation: Family current occupational status: employed Other Information That Helps Us Care for You: No Feels Safe at Home: Yes Safety Concerns: Feels Safe At This Time Assistive Devices: Glasses Review of Systems Review of Systems: All systems reviewed & are unremarkable except as noted in Subjective Physical Exam Constitutional: WD/WN, vitals as above Neck: trachea midline, no thyromegaly Respiratory: normal respiratory effort, lungs clear to auscultation Cardiovascular: RRR, no murmur, no edema Gastrointestinal (Abdomen): normal bowel sounds, soft, nontender, no hepatosplenomegaly Musculoskeletal: Extremities: extremities normal to inspection Skin: no rashes, warm and dry Neurologic: Nonfocal exam Lymphatic: no cervical lymphadenopathy Results & Data Results & Data ([facility]) Vital Signs (Past 12 Hours) Vital Signs Temp Pulse Pulse Resp BP BP Pulse Ox 09/08/22 11:45 75 19 98 09/08/22 11:45 136/100 09/08/22 11:30 90 22 98 09/08/22 11:30 145/114 H 09/08/22 11:15 82 16 99 09/08/22 11:15 142/101 H 09/08/22 11:00 90 18 99 09/08/22 11:00 150/96 H 09/08/22 10:45 78 17 09/08/22 10:45 131/85 09/08/22 10:43 74 13 09/08/22 10:43 130/89 09/08/22 10:42 81 11 L 09/08/22 08:45 109 H 15 09/08/22 08:40 102 H 20 09/08/22 08:40 132/101 H 09/08/22 08:30 108 H 23 09/08/22 08:30 132/90 09/08/22 08:25 137/87 09/08/22 08:25 103 H 24 09/08/22 08:18 109 H 18 100 09/08/22 08:18 138/110 H 09/08/22 10:41 84 09/08/22 10:52 36.9 C 94 H 16 131/85 09/08/22 08:49 73 18 132/98 98 09/08/22 08:01 98 09/08/22 07:44 36.7 C 92 H 20 139/86 99 O2 Del Method O2 Flow Rate 09/08/22 11:45 09/08/22 11:45 09/08/22 11:30 09/08/22 11:30 09/08/22 11:15 09/08/22 11:15 09/08/22 11:00 09/08/22 11:00 09/08/22 10:45 09/08/22 10:45 09/08/22 10:43 09/08/22 10:43 09/08/22 10:42 09/08/22 08:45 09/08/22 08:40 09/08/22 08:40 09/08/22 08:30 09/08/22 08:30 09/08/22 08:25 09/08/22 08:25 09/08/22 08:18 09/08/22 08:18 09/08/22 10:41 09/08/22 10:52 Room Air 09/08/22 08:49 Nasal Cannula 2 09/08/22 08:01 Room Air 09/08/22 07:44 Room Air Critical Care Results & Data Vital Signs (Past 12 Hours) Vital Signs Temp Pulse Pulse Resp BP BP Pulse Ox 09/08/22 11:45 75 19 98 09/08/22 11:45 136/100 09/08/22 11:30 90 22 98 09/08/22 11:30 145/114 H 09/08/22 11:15 82 16 99 09/08/22 11:15 142/101 H 09/08/22 11:00 90 18 99 09/08/22 11:00 150/96 H 09/08/22 10:45 78 17 09/08/22 10:45 131/85 09/08/22 10:43 74 13 09/08/22 10:43 130/89 09/08/22 10:42 81 11 L 09/08/22 08:45 109 H 15 09/08/22 08:40 102 H 20 09/08/22 08:40 132/101 H 09/08/22 08:30 108 H 23 09/08/22 08:30 132/90 09/08/22 08:25 137/87 09/08/22 08:25 103 H 24 09/08/22 08:18 109 H 18 100 09/08/22 08:18 138/110 H 09/08/22 10:41 84 09/08/22 10:52 36.9 C 94 H 16 131/85 09/08/22 08:49 73 18 132/98 98 09/08/22 08:01 98 09/08/22 07:44 36.7 C 92 H 20 139/86 99 O2 Del Method O2 Flow Rate 09/08/22 11:45 09/08/22 11:45 09/08/22 11:30 09/08/22 11:30 09/08/22 11:15 09/08/22 11:15 09/08/22 11:00 09/08/22 11:00 09/08/22 10:45 09/08/22 10:45 09/08/22 10:43 09/08/22 10:43 09/08/22 10:42 09/08/22 08:45 09/08/22 08:40 09/08/22 08:40 09/08/22 08:30 09/08/22 08:30 09/08/22 08:25 09/08/22 08:25 09/08/22 08:18 09/08/22 08:18 09/08/22 10:41 09/08/22 10:52 Room Air 09/08/22 08:49 Nasal Cannula 2 09/08/22 08:01 Room Air 09/08/22 07:44 Room Air Lab & Micro Results (Past 24 Hours) RBC 5.20 M/uL (4.63-6.08) 09/08/22 WBC 9.74 K/ul (4.8-10.8) 09/08/22 Hgb 15.6 g/dl (14.0-18.0) 09/08/22 Hct 44.8 % (40.1-51.0) 09/08/22 MCV 86.2 fL (80.0-100.0) 09/08/22 MCH 30.0 pg (25.0-34.0) 09/08/22 MCHC 34.8 g/dL (32.0-36.0) 09/08/22 RDW Standard Deviation 40.8 fL (36.4-46.3) 09/08/22 RDW Coefficient of Variation 13.0 % (11.5-14.5) 09/08/22 Plt Count 255 K/uL (130-400) 09/08/22 MPV 10.5 fL (9.4-12.4) 09/08/22 Neutrophils (%) (Auto) 77.4 % 09/08/22 Lymphocytes (%) (Auto) 14.8 % 09/08/22 Monocytes # (Auto) 0.62 K/uL (0.24-0.82) 09/08/22 Eosinophils # (Auto) 0.07 K/uL (0-0.50) 09/08/22 Immature Granulocyte % (Auto) 0.3 % 09/08/22 Neutrophils # (Auto) 7.54 K/uL (1.4-6.5) H 09/08/22 Lymphocytes # (Auto) 1.44 K/uL (1.2-3.4) 09/08/22 Monocytes # (Auto) 0.62 K/uL (0.24-0.82) 09/08/22 Eosinophils # (Auto) 0.07 K/uL (0-0.50) 09/08/22 Basophils # (Auto) 0.04 K/uL (0-0.2) 09/08/22 Immature Granulocyte # (Auto) 0.03 K/uL (0.00-0.02) H 09/08 Na 137 mmol/L (136-145) 09/08/22 K 3.7 mmol/L (3.5-5.1) 09/08/22 Cl 102 mmol/L (98-107) 09/08/22 CO2 21 mmol/L (21-32) 09/08/22 Anion Gap 14 (3-11) H 09/08/22 BUN 14 mg/dl (6-23) 09/08/22 Creatinine 0.91 mg/dl (0.6-1.4) 09/08/22 Estimated GFR ( Amer) 126.1 ml/min 09/08/22 Estimated GFR (Non-Af Amer) 108.8 ml/min 09/08/22 BUN/Creatinine Ratio 15.4 (10-20) 09/08/22 Glu 110 mg/dl (70-99(Fasting)) H 09/08/22 Ca 10.9 mg/dl (8.5-10.1) H 09/08/22 Total Bilirubin 0.6 mg/dl (0.2-1.0) 09/08/22 AST 31 U/L (13-39) 09/08/22 ALT 46 U/L (7-52) 09/08/22 Alkaline Phosphatase 81 U/L (34-104) 09/08/22 TP 8.1 gm/dl (6.0-8.3) 09/08/22 Albumin 4.8 gm/dl (3.4-5.0) 09/08/22 Globulin 3.3 gm/dl (2.5-4.0) 09/08/22 Albumin/Globulin Ratio 1.5 (0.9-2) 09/08/22 Calcium Level 10.9 mg/dl (8.5-10.1) H 09/08/22 08:15 Prothromb Time International Ratio 1.0 (0.9-1.1) 09/08/22 08:1 5 Diagnostic Findings (Past 24 Hours) Chest X-Ray 09/08/22 08:03 SINGLE VIEW CHEST CLINICAL HISTORY: Atypical chest pain. Diarrhea FINDINGS: An AP, portable, upright chest radiograph is obtained. No prior studies are available for comparison at the time of dictation. The examination is degraded by portable technique and apical lordotic positioning. The cardiomediastinal silhouette is unremarkable. The lungs and pleural spaces are clear. No pneumothorax is seen. The bony thorax is grossly intact. IMPRESSION: No acute cardiopulmonary abnormality. ACT 112: Negative or not required by law. Electronically signed by: Shen Smith M.D. 09/08/2022 8:42 AM I & O Totals 24 Hours 09/07/22 09/08/22 09/09/22 06:59 06:59 06:59 Intake Total 100 / 100 Output Total 400 / 400 Balance -300 / -300 Cumulative 09/08/22 07:38 thru 09/08/22 11:01 Intake Total 100 Output Total 400 Balance -300 RT Ventilator Mngmt (Last Documented) Ventilator Ordered Settings Respiratory Rate 19 09/08/22 11:45 Ventilator - PT Measurements Respiratory Rate 19 Coding Level of Care Code 77497 Inpt Consult Level 4 Diagnoses STEMI (ST elevation myocardial infarction) I21.3
[2022-09-08] MEDS: ICU Protocol for HYPERglycemia SCH ×3 (13:41→21:30)
[2022-09-08] MEDS ORDERED: NITROGLYCERIN/D5W 100 MCG/ML BTL ONE (13:59)
[2022-09-08] MEDS: NITROGLYCERIN/D5W 100MCG/ML 250 ML IV SCH (14:06)
[2022-09-08] MEDS ORDERED: Nursing to Pharmacy Communication SCH (15:00)
[2022-09-08] MEDS: EPTIFIBATIDE 75 MG/100 ML VIAL IV SCH ×2 (15:06→22:24)
--- NOTE | 2022-09-08 15:18 | Electrocardiogram Report ---
Test Reason : Blood Pressure : / mmHG Vent. Rate : 085 BPM Atrial Rate : 085 BPM P-R Int : 148 ms QRS Dur : 088 ms QT Int : 368 ms P-R-T Axes : 050 020 060 degrees QTc Int : 437 ms Normal sinus rhythm with sinus arrhythmia Acute Anterior infarct Abnormal ECG No previous ECGs available Confirmed by Michael Shen ([id number]) on 09/08/2022 3:18:37 PM Referred By: REFERRED SELF Confirmed By:Michael Shen
--- NOTE | 2022-09-08 15:23 | Electrocardiogram Report ---
Test Reason : Blood Pressure : / mmHG Vent. Rate : 105 BPM Atrial Rate : 105 BPM P-R Int : 154 ms QRS Dur : 086 ms QT Int : 350 ms P-R-T Axes : 052 023 066 degrees QTc Int : 462 ms Sinus tachycardia Acute Anterior infarct Abnormal ECG When compared with ECG of 08-SEP-2022 08:09, No significant change Confirmed by Michael Shen ([id number]) on 09/08/2022 3:23:25 PM Referred By: REFERRED SELF Confirmed By:Michael Shen
--- NOTE | 2022-09-08 15:33 | Electrocardiogram Report ---
Test Reason : Blood Pressure : / mmHG Vent. Rate : 097 BPM Atrial Rate : 097 BPM P-R Int : 158 ms QRS Dur : 086 ms QT Int : 360 ms P-R-T Axes : 051 019 051 degrees QTc Int : 457 ms Normal sinus rhythm Acute Anterior infarct Abnormal ECG When compared with ECG of 08-SEP-2022 08:34, No significant change Confirmed by Michael Shen ([id number]) on 09/08/2022 3:32:59 PM Referred By: REFERRED SELF Confirmed By:Michael Shen
[2022-09-08] MEDS: ICU ELECTROLYTE REPLACEMENT PROTOCOL SCH (19:19)
[2022-09-08 19:25] LABS: Appearance Urine Clear (Clear); Bilirubin Urine Negative (Negative); Blood Urine Negative (Negative); Color Urine Yellow; Glucose Urine UA Negative (Negative); Ketones Urine Negative (Negative); Leukocyte Esterase Urine Negative (Negative); Nitrite Urine Negative (Negative); Protein Urine Negative (Negative); Specific Gravity Urine 1.044 (1.000-1.030); Urobilinogen Urine Negative (Negative); pH Urine 8.5 (4.5-7.5)
[2022-09-08] MEDS: ACETAMINOPHEN 325 MG TAB PO PRN (19:46)
[2022-09-08 19:59] LABS: Amphetamines+Metham, Urine Neg (Neg); Barbiturates, Urine Neg (Neg); Benzodiazepine, Urine Pos (Neg); Cocaine, Urine Neg (Neg); MDMA (Ecstacy), Urine Neg (Neg); Methadone, Urine Neg (Neg); Opiate, Urine Pos (Neg); Phencyclidine, Urine Neg (Neg)
[2022-09-08] MEDS: LORazepam 0.5 MG in SYRINGE 0 ML IV PRN (20:29)
[2022-09-08] MEDS: TICAGRELOR 90 MG TAB PO SCH (21:30)
[2022-09-09] MEDS: NITROGLYCERIN/D5W 100MCG/ML 250 ML IV SCH ×3 (02:57→21:56)
[2022-09-09] MEDS: ACETAMINOPHEN 325 MG TAB PO PRN (03:36)
[2022-09-09] MEDS: MoRPHine SULFATE 2 MG/ML CARP IV PRN ×7 (03:38→22:39)
[2022-09-09 03:45] LABS: Basophils # (auto) 0.01 K/uL (0-0.2); Basophils % (auto) 0.1 %; Eosinophils % (auto) 0.9 %; Hematocrit (blood only) 39.3 % (40.1-51.0); Hemoglobin 13.5 g/dl (14.0-18.0); Immature Granulocytes # (auto) 0.03 K/uL (0.00-0.02); Immature Granulocytes % (auto) 0.3 %; Lymphocytes # (auto) 2.11 K/uL (1.2-3.4); Lymphocytes % (auto) 19.9 %; Mean Corpuscular Hemoglobin 30.2 pg (25.0-34.0); Mean Corpuscular Hgb Conc 34.4 g/dL (32.0-36.0); Mean Corpuscular Volume 87.9 fL (80.0-100.0); Mean Platelet Volume 10.3 fL (9.4-12.4); Monocytes # (auto) 0.97 K/uL (0.24-0.82); Monocytes % (auto) 9.2 %; Neutrophils # (auto) 7.36 K/uL (1.4-6.5); Neutrophils % (auto) 69.6 %; Platelet Count 220 K/uL (130-400); RDW Coefficient of Variation 13.4 % (11.5-14.5); RDW Standard Deviation 43.4 fL (36.4-46.3); Red Blood Count 4.47 M/uL (4.63-6.08); White Blood Count 10.58 K/ul (4.8-10.8)
[2022-09-09 04:08] LABS: BUN Creatinine Ratio 17.9 (10-20); Calcium 9.1 mg/dl (8.5-10.1); Chol HDL Ratio 3.3 (0-5); Creatinine Clr Calc Pharmacy 144.1 ml/min; Est GFR (African American) 131.5 ml/min; Est GFR (Non-African American) 113.4 ml/min; Magnesium 1.8 mg/dl (1.7-2.4); Phosphorus 3.5 mg/dl (2.5-4.9); Potassium 3.8 mmol/L (3.5-5.1)
[2022-09-09] MEDS: ICU ELECTROLYTE REPLACEMENT PROTOCOL SCH ×2 (04:24→17:59)
[2022-09-09] MEDS: EPTIFIBATIDE 75 MG/100 ML VIAL IV SCH (05:01)
[2022-09-09] MEDS: MAGNESIUM OXIDE 400 MG TAB PO SCH ×2 (06:06→08:00)
[2022-09-09] MEDS: METOPROLOL TARTRATE 25 MG TAB PO SCH ×4 (06:06→21:56)
[2022-09-09] MEDS: POTASSIUM CHLORIDE CRTAB 20 MEQ TABCR PO SCH ×2 (06:07→08:00)
--- NOTE | 2022-09-09 07:20 | Electrocardiogram Report ---
Test Reason : Blood Pressure : / mmHG Vent. Rate : 091 BPM Atrial Rate : 091 BPM P-R Int : 154 ms QRS Dur : 082 ms QT Int : 360 ms P-R-T Axes : 067 041 059 degrees QTc Int : 442 ms Normal sinus rhythm Possible Left atrial enlargement ST elevation, consider early repolarization, pericarditis, or injury Borderline ECG When compared with ECG of 08-SEP-2022 11:03, No significant change was found Confirmed by Joseph Dupree ([id number]) on 09/09/2022 7:19:45 AM Referred By: REFERRED SELF Confirmed By:Dinesh Dupree
--- NOTE | 2022-09-09 07:34 | XCELERA ---
[id number]
[2022-09-09 07:48] LABS: Estimated Average Glucose 120 mg/dl; Hemoglobin A1C 5.8 % (4.5-5.6)
[2022-09-09] MEDS: ATORVASTATIN 40 MG TAB PO SCH (08:00)
[2022-09-09] MEDS: TICAGRELOR 90 MG TAB PO SCH ×2 (08:00→20:12)
[2022-09-09] MEDS: ASPIRIN 81 MG ECTAB PO SCH (08:01)
[2022-09-09] MEDS: LOSARTAN POTASSIUM 25 MG TAB PO SCH (08:01)
[2022-09-09] MEDS: ICU Protocol for HYPERglycemia SCH ×4 (08:46→20:23)
--- NOTE | 2022-09-09 08:53 | Critical Care Progress Note ---
Date of Service September 09, 2022 Assessment & Plan (1) STEMI (ST elevation myocardial infarction): Plan Impression: 37-year-old male without significant past medical history presents with acute coronary syndrome status post drug-eluting stent to the mid LAD with residual thrombus. He is currently having residual chest pain here in the ICU. 24-hour events: Patient taken to the [facility] yesterday morning. Stent placed. He has had continued chest pain and was on an extended run of Integrilin. This is now completed its infusion. He continues to have pain rated 5 out of 10 despite nitro drip. His hemodynamics are improved. Recommendations: 1. ST elevation myocardial infarction status post drug-eluting stent. Continue beta-nick Brilinta aspirin and WILD inhibitor as tolerated by blood pressure. 2. Patient continues to have chest pain. Unclear if this is angina or potentially related to remigio-infarct pericarditis. I do not appreciate a clear rub on today's exam however his EKG does have some early repolarization changes. Treatments primarily supportive. Will provide analgesia with acetaminophen scheduled. Avoid nonsteroidal anti-inflammatory agents. No indication for glucocorticoids or colchicine at this time. 3. Continue to trend troponin until peaked 4. Advised the patient that I would not recommend nicotine replacement in the setting of acute coronary syndrome. Smoking cessation recommended. 5. Defer to cardiology weaning of nitro. It does not appear to be effective in alleviating the patient's chest discomfort currently. Thanks for the opportunity participating in the care of this patient. Feel free to contact us with questions or concerns disposition per cardiology Admission and Anticipated Discharge Date Admission Date: September 08, 2022 Subjective Patient seen and examined. EMR reviewed. Discussed with bedside critical care nurse. The patient continues to have chest pain. He rates it at a 5 currently. Its worse with deep breathing. He has been on his nitro drip. He is not coughing or expectorating phlegm. He denies any cough or sputum production. No nausea or vomiting. No significant lower extremity edema Review of Systems Review of Systems: All systems reviewed & are unremarkable except as noted in Subjective Physical Exam Constitutional: WD/WN, vitals as above Neck: trachea midline, no thyromegaly Respiratory: normal respiratory effort, lungs clear to auscultation Cardiovascular: RRR, no murmur, no edema Gastrointestinal (Abdomen): normal bowel sounds, soft, nontender, no hepatosplenomegaly Musculoskeletal: Extremities: extremities normal to inspection Skin: no rashes, warm and dry Lymphatic: no cervical lymphadenopathy Results & Data Results & Data ([facility]) Vital Signs (Past 12 Hours) Vital Signs Temp Pulse Resp BP BP Pulse Ox O2 Del Method 09/09/22 08:00 72 09/09/22 08:07 Nasal Cannula 09/09/22 06:30 73 18 93 09/09/22 06:00 79 14 106/69 93 09/09/22 05:30 82 29 H 92 09/09/22 05:00 72 17 92 09/09/22 05:00 99/55 L 09/09/22 04:30 80 15 95 09/09/22 04:00 36.7 C 79 21 95 09/09/22 03:30 76 24 98 09/09/22 03:00 78 16 119/69 94 09/09/22 02:30 76 14 103/69 94 Nasal Cannula 09/09/22 02:00 76 15 92 09/09/22 02:00 103/69 09/09/22 01:30 71 17 95 09/09/22 01:00 76 22 93 09/09/22 01:00 103/66 09/09/22 00:30 72 16 93 09/09/22 00:00 86 09/09/22 00:00 86 16 89 L 09/09/22 00:00 104/72 09/08/22 23:50 83 16 91 09/08/22 23:40 83 16 91 09/08/22 23:30 82 17 91 09/09/22 00:21 Nasal Cannula 09/08/22 23:00 70 16 113/72 95 09/08/22 22:00 77 17 116/73 91 09/08/22 21:00 106/60 09/08/22 21:00 106/60 O2 Flow Rate 09/09/22 08:00 09/09/22 08:07 2 09/09/22 06:30 09/09/22 06:00 09/09/22 05:30 09/09/22 05:00 09/09/22 05:00 09/09/22 04:30 09/09/22 04:00 09/09/22 03:30 09/09/22 03:00 09/09/22 02:30 2 09/09/22 02:00 09/09/22 02:00 09/09/22 01:30 09/09/22 01:00 09/09/22 01:00 09/09/22 00:30 09/09/22 00:00 09/09/22 00:00 09/09/22 00:00 09/08/22 23:50 09/08/22 23:40 09/08/22 23:30 09/09/22 00:21 2 09/08/22 23:00 09/08/22 22:00 09/08/22 21:00 09/08/22 21:00 Laboratory Results Troponin up to 35,000. Has not yet peaked Lipid panel with an LDL of 120, HDL 55, and triglycerides of 99 Diagnostic Findings Echocardiogram from yesterday showed normal systolic function at 50 to 55% with grade 1 diastolic dysfunction. Aroda was akinetic with septal dyskinesis. Right ventricle was normal. No significant valvular disease identified. Critical Care Results & Data Vital Signs (Past 12 Hours) Vital Signs Temp Pulse Resp BP Pulse Ox O2 Del Method O2 Flow Rate 09/09/22 08:00 72 09/09/22 08:07 Nasal Cannula 2 09/09/22 06:30 73 18 93 09/09/22 06:00 79 14 106/69 93 09/09/22 05:30 82 29 H 92 09/09/22 05:00 72 17 92 09/09/22 05:00 99/55 L 09/09/22 04:30 80 15 95 09/09/22 04:00 36.7 C 79 21 95 09/09/22 03:30 76 24 98 09/09/22 03:00 78 16 119/69 94 09/09/22 02:30 76 14 103/69 94 Nasal Cannula 2 09/09/22 02:00 76 15 92 09/09/22 02:00 103/69 09/09/22 01:30 71 17 95 09/09/22 01:00 76 22 93 09/09/22 01:00 103/66 09/09/22 00:30 72 16 93 09/09/22 00:00 86 09/09/22 00:00 86 16 89 L 09/09/22 00:00 104/72 09/08/22 23:50 83 16 91 09/08/22 23:40 83 16 91 09/08/22 23:30 82 17 91 09/09/22 00:21 Nasal Cannula 2 09/08/22 23:00 70 16 113/72 95 09/08/22 22:00 77 17 116/73 91 Lab & Micro Results (Past 24 Hours) RBC 4.47 M/uL (4.63-6.08) L 09/09/22 WBC 10.58 K/ul (4.8-10.8) 09/09/22 Hgb 13.5 g/dl (14.0-18.0) L 09/09/22 Hct 39.3 % (40.1-51.0) L 09/09/22 MCV 87.9 fL (80.0-100.0) 09/09/22 MCH 30.2 pg (25.0-34.0) 09/09/22 MCHC 34.4 g/dL (32.0-36.0) 09/09/22 RDW Standard Deviation 43.4 fL (36.4-46.3) 09/09/22 RDW Coefficient of Variation 13.4 % (11.5-14.5) 09/09/22 Plt Count 220 K/uL (130-400) 09/09/22 MPV 10.3 fL (9.4-12.4) 09/09/22 Neutrophils (%) (Auto) 69.6 % 09/09/22 Lymphocytes (%) (Auto) 19.9 % 09/09/22 Monocytes # (Auto) 0.97 K/uL (0.24-0.82) H 09/09/22 Eosinophils # (Auto) 0.10 K/uL (0-0.50) 09/09/22 Immature Granulocyte % (Auto) 0.3 % 09/09/22 Neutrophils # (Auto) 7.36 K/uL (1.4-6.5) H 09/09/22 Lymphocytes # (Auto) 2.11 K/uL (1.2-3.4) 09/09/22 Monocytes # (Auto) 0.97 K/uL (0.24-0.82) H 09/09/22 Eosinophils # (Auto) 0.10 K/uL (0-0.50) 09/09/22 Basophils # (Auto) 0.01 K/uL (0-0.2) 09/09/22 Immature Granulocyte # (Auto) 0.03 K/uL (0.00-0.02) H 09/09 Na 134 mmol/L (136-145) L 09/09/22 K 3.8 mmol/L (3.5-5.1) 09/09/22 Cl 102 mmol/L (98-107) 09/09/22 CO2 25 mmol/L (21-32) 09/09/22 Anion Gap 7 (3-11) 09/09/22 BUN 15 mg/dl (6-23) 09/09/22 Creatinine 0.84 mg/dl (0.6-1.4) 09/09/22 Estimated GFR ( Amer) 131.5 ml/min 09/09/22 Estimated GFR (Non-Af Amer) 113.4 ml/min 09/09/22 BUN/Creatinine Ratio 17.9 (10-20) 09/09/22 Glu 95 mg/dl (70-99(Fasting)) 09/09/22 Ca 9.1 mg/dl (8.5-10.1) 09/09/22 Phosphorus Level 3.5 mg/dl (2.5-4.9) 09/09/22 Mg 1.8 mg/dl (1.7-2.4) 09/09/22 03:31 Calcium Level 9.1 mg/dl (8.5-10.1) 09/09/22 03:31 I & O Totals 24 Hours 09/08/22 09/09/22 09/10/22 06:59 06:59 06:59 Intake Total 2822.10 / 2822.10 105.95 / 105.95 Output Total 1200 / 1200 Balance 1622.10 / 1622.10 105.95 / 105.95 Cumulative 09/08/22 07:38 thru 09/09/22 07:06 Intake Total 2928.05 Output Total 1200 Balance 1728.05 RT Ventilator Mngmt (Last Documented) Ventilator Ordered Settings Respiratory Rate 18 09/09/22 06:30 Ventilator - PT Measurements Respiratory Rate 18 Coding Level of Care Code 69792 Subseq Hosp Care Lvl 3 Diagnoses STEMI (ST elevation myocardial infarction) I21.3
[2022-09-09] MEDS: ACETAMINOPHEN 325 MG TAB PO SCH ×4 (09:18→20:23)
--- NOTE | 2022-09-09 10:25 | Cardiology Progress Note ---
Date of Service September 09, 2022 Assessment & Plan (1) STEMI (ST elevation myocardial infarction): Plan Tolerating medical therapy. Current chest pain more suggestive of a pericardial process rather than recurrent ischemia. This point I suggested weaning the nitroglycerin infusion. Will administer analgesics and colchicine. Increase metoprolol with plans to increase losartan as blood pressure allows Continue dual anti-platelet therapy Continue to trend troponin until we have seen the peak. Likely late peak given continued distal LAD obstruction and completion of apical infarct. Admission and Anticipated Discharge Date Admission Date: September 08, 2022 Subjective This morning patient continues to complain of chest discomfort. Curiously, his symptoms appear to have resolved overnight and did get some sleep. However, he states that upon awakening this morning noticed the fairly acute onset of pleuritic chest discomfort. Worse with lying down and better with sitting up. Certainly worse with deep inspiration. Somewhat distinct from his initial presentation. No breathing trouble other than splinting from pain. Review of Systems Review of Systems: Per HPI Physical Exam Physical Exam: The patient is alert and oriented. Mood and affect appeared normal. He answered all questions appropriately. HEENT: Pupils are equal and reactive to light and accommodation. Extraocular movements are intact. The sclerae are anicteric. Neuro: Cranial nerves intact Lungs: Clear to auscultation bilaterally. He has good air movement without use of accessory muscles. No rales wheezes or rhonchi. Cardiac: Heart demonstrates a regular rate and rhythm. Normal S1 and S2. No murmurs on examination. Pulses: The patient has palpable radial pulses bilaterally that are equal in intensity Extremities: There was no evidence of hypoperfusion. There is no cyanosis or clubbing. There is no edema. Skin: I did not appreciate any rashes on examination today. Results & Data ([facility]) Vital Signs (Past 12 Hours) Vital Signs Temp Pulse Resp BP Pulse Ox O2 Del Method O2 Flow Rate 09/09/22 08:00 72 09/09/22 08:07 Nasal Cannula 2 09/09/22 06:30 73 18 93 09/09/22 06:00 79 14 106/69 93 09/09/22 05:30 82 29 H 92 09/09/22 05:00 72 17 92 09/09/22 05:00 99/55 L 09/09/22 04:30 80 15 95 09/09/22 04:00 36.7 C 79 21 95 09/09/22 03:30 76 24 98 09/09/22 03:00 78 16 119/69 94 09/09/22 02:30 76 14 103/69 94 Nasal Cannula 2 09/09/22 02:00 76 15 92 09/09/22 02:00 103/69 09/09/22 01:30 71 17 95 09/09/22 01:00 76 22 93 09/09/22 01:00 103/66 09/09/22 00:30 72 16 93 09/09/22 00:00 86 09/09/22 00:00 86 16 89 L 09/09/22 00:00 104/72 09/08/22 23:50 83 16 91 09/08/22 23:40 83 16 91 09/08/22 23:30 82 17 91 09/09/22 00:21 Nasal Cannula 2 09/08/22 23:00 70 16 113/72 95 Laboratory Results Abnormal Lab Results 09/08/22 09/08/22 09/08/22 09:32 11:04 11:15 WBC RBC Hgb Hct MCV MCH MCHC RDW Std Deviation RDW Coeff of Jem Plt Count MPV Immature Gran % (Auto) Neut % (Auto) Lymph % (Auto) [place] % (Auto) Eos % (Auto) Baso % (Auto) Neut # (Auto) Lymph # (Auto) [place] # (Auto) Eos # (Auto) Baso # (Auto) Immature Gran # (Auto) Activ Coag Time Kaolin 329 H Sodium Potassium Chloride Carbon Dioxide Anion Gap BUN Creatinine Est Cr Clr Drug Dosing Est GFR ( Amer) Est GFR (Non-Af Amer) BUN/Creatinine Ratio Glucose POC Glucose Estimat Average Glucose Hemoglobin A1c Calcium Phosphorus Magnesium Troponin I High Sens 1620.5 H* D Triglycerides Cholesterol LDL Cholesterol Direct LDL Cholesterol, Calc VLDL Cholesterol, Calc HDL Cholesterol Cholesterol/HDL Ratio Urine Color Urine Appearance Urine pH Ur Specific Arabi Urine Protein Urine Glucose (UA) Urine Ketones Urine Blood Urine Nitrite Urine Bilirubin Urine Urobilinogen Ur Leukocyte Esterase Nasal Screen MRSA (PCR) Negative Urine Opiates Screen Ur Methadone, Qual Urine Barbiturates Ur Phencyclidine (PCP) U Amphetamin/Meth Scrn MDMA (Ecstasy) Screen U Benzodiazepines Scrn Ur Cocaine Metabolite U Marijuana (THC) Screen 09/08/22 09/08/22 09/08/22 13:38 16:40 16:40 WBC RBC Hgb Hct MCV MCH MCHC RDW Std Deviation RDW Coeff of Jem Plt Count MPV Immature Gran % (Auto) Neut % (Auto) Lymph % (Auto) [place] % (Auto) Eos % (Auto) Baso % (Auto) Neut # (Auto) Lymph # (Auto) [place] # (Auto) Eos # (Auto) Baso # (Auto) Immature Gran # (Auto) Activ Coag Time Kaolin Sodium Potassium Chloride Carbon Dioxide Anion Gap BUN Creatinine Est Cr Clr Drug Dosing Est GFR ( Amer) Est GFR (Non-Af Amer) BUN/Creatinine Ratio Glucose POC Glucose 97 Estimat Average Glucose Hemoglobin A1c Calcium Phosphorus Magnesium Troponin I High Sens Triglycerides Cholesterol LDL Cholesterol Direct LDL Cholesterol, Calc VLDL Cholesterol, Calc HDL Cholesterol Cholesterol/HDL Ratio Urine Color Yellow Urine Appearance Clear Urine pH 8.5 H Ur Specific Arabi 1.044 H Urine Protein Negative Urine Glucose (UA) Negative Urine Ketones Negative Urine Blood Negative Urine Nitrite Negative Urine Bilirubin Negative Urine Urobilinogen Negative Ur Leukocyte Esterase Negative Nasal Screen MRSA (PCR) Urine Opiates Screen Pos H Ur Methadone, Qual Neg Urine Barbiturates Neg Ur Phencyclidine (PCP) Neg U Amphetamin/Meth Scrn Neg MDMA (Ecstasy) Screen Neg U Benzodiazepines Scrn Pos H Ur Cocaine Metabolite Neg U Marijuana (THC) Screen Neg 09/08/22 09/08/22 09/09/22 18:44 18:55 03:31 WBC 10.58 RBC 4.47 L Hgb 13.5 L Hct 39.3 L MCV 87.9 MCH 30.2 MCHC 34.4 RDW Std Deviation 43.4 RDW Coeff of Jem 13.4 Plt Count 220 MPV 10.3 Immature Gran % (Auto) 0.3 Neut % (Auto) 69.6 Lymph % (Auto) 19.9 [place] % (Auto) 9.2 Eos % (Auto) 0.9 Baso % (Auto) 0.1 Neut # (Auto) 7.36 H Lymph # (Auto) 2.11 [place] # (Auto) 0.97 H Eos # (Auto) 0.10 Baso # (Auto) 0.01 Immature Gran # (Auto) 0.03 H Activ Coag Time Kaolin Sodium Potassium Chloride Carbon Dioxide Anion Gap BUN Creatinine Est Cr Clr Drug Dosing Est GFR ( Amer) Est GFR (Non-Af Amer) BUN/Creatinine Ratio Glucose POC Glucose 99 Estimat Average Glucose Hemoglobin A1c Calcium Phosphorus Magnesium Troponin I High Sens 49349.2 H* D Triglycerides Cholesterol LDL Cholesterol Direct LDL Cholesterol, Calc VLDL Cholesterol, Calc HDL Cholesterol Cholesterol/HDL Ratio Urine Color Urine Appearance Urine pH Ur Specific Arabi Urine Protein Urine Glucose (UA) Urine Ketones Urine Blood Urine Nitrite Urine Bilirubin Urine Urobilinogen Ur Leukocyte Esterase Nasal Screen MRSA (PCR) Urine Opiates Screen Ur Methadone, Qual Urine Barbiturates Ur Phencyclidine (PCP) U Amphetamin/Meth Scrn MDMA (Ecstasy) Screen U Benzodiazepines Scrn Ur Cocaine Metabolite U Marijuana (THC) Screen 09/09/22 09/09/22 09/09/22 03:31 03:31 03:31 WBC RBC Hgb Hct MCV MCH MCHC RDW Std Deviation RDW Coeff of Jem Plt Count MPV Immature Gran % (Auto) Neut % (Auto) Lymph % (Auto) [place] % (Auto) Eos % (Auto) Baso % (Auto) Neut # (Auto) Lymph # (Auto) [place] # (Auto) Eos # (Auto) Baso # (Auto) Immature Gran # (Auto) Activ Coag Time Kaolin Sodium 134 L Potassium 3.8 Chloride 102 Carbon Dioxide 25 Anion Gap 7 BUN 15 Creatinine 0.84 Est Cr Clr Drug Dosing 144.1 Est GFR ( Amer) 131.5 Est GFR (Non-Af Amer) 113.4 BUN/Creatinine Ratio 17.9 Glucose 95 POC Glucose Estimat Average Glucose 120 Hemoglobin A1c 5.8 H Calcium 9.1 Phosphorus 3.5 Magnesium 1.8 Troponin I High Sens 83013.3 H* D Triglycerides 99 Cholesterol 181 LDL Cholesterol Direct 120 LDL Cholesterol, Calc 106 VLDL Cholesterol, Calc 20 HDL Cholesterol 55 Cholesterol/HDL Ratio 3.3 Urine Color Urine Appearance Urine pH Ur Specific Arab[place] Urine Protein Urine Glucose (UA) Urine Ketones Urine Blood Urine Nitrite Urine Bilirubin Urine Urobilinogen Ur Leukocyte Esterase Nasal Screen MRSA (PCR) Urine Opiates Screen Ur Methadone, Qual Urine Barbiturates Ur Phencyclidine (PCP) U Amphetamin/Meth Scrn MDMA (Ecstasy) Screen U Benzodiazepines Scrn Ur Cocaine Metabolite U Marijuana (THC) Screen Diagnostic Findings Echocardiogram performed today revealed overall preserved LV systolic function with apical akinesis and mild dyskinesis. No significant valvular heart disease. PG Care Time/CCT Total # of Minutes Spent Total Time Spent with Patient: Total time spent is greater than 50% in coordination of care (as documented) at patient's floor/unit and/or counseling patient: Coding Level of Care Code 12431 Subseq Hosp Care Lvl 2 Diagnoses STEMI (ST elevation myocardial infarction) I21.3
[2022-09-09] MEDS: COLCHICINE 0.6 MG TAB PO SCH ×2 (11:33→20:12)
[2022-09-09] MEDS ORDERED: MoRPHine SULFATE 2 MG/ML CARP IV STA (11:49)
--- NOTE | 2022-09-09 16:39 | XCELERA ---
[id number]
--- NOTE | 2022-09-09 16:43 | Electrocardiogram Report ---
Test Reason : Blood Pressure : / mmHG Vent. Rate : 081 BPM Atrial Rate : 081 BPM P-R Int : 156 ms QRS Dur : 086 ms QT Int : 354 ms P-R-T Axes : 043 017 033 degrees QTc Int : 411 ms Normal sinus rhythm ST elevation, consider early repolarization, pericarditis, or injury Nonspecific ST and T wave abnormality Abnormal ECG When compared with ECG of 08-SEP-2022 13:16, ST less elevated in Lateral leads Nonspecific T wave abnormality now evident in Anterior leads Confirmed by Joseph Dupree ([id number] on 09/09/2022 4:43:01 PM Referred By: REFERRED SELF Confirmed By:Dinesh Dupree
[2022-09-09] MEDS: LORazepam 0.5 MG in SYRINGE 0 ML IV PRN (17:51)
--- NOTE | 2022-09-09 17:58 | Hospitalist Progress Note ---
Date of Service September 09, 2022 Assessment & Plan (1) STEMI (ST elevation myocardial infarction): Plan: 2nd to 95% early-mid LAD lesion and occluded distal LAD. PCI of earlymid LAD with single drug-eluting stent (4.0 x 18 mm Carlos; postdilated with 4.5 NC). Residual thrombus in apical LAD (despite IC vasodilators/apical LAD angioplasty). RCA and left Cx without any disease. s/p admission to ICU overnight. Was treated with nitro drip overnight for ongoing chest pain initially thought 2nd to residual thrombus in apical LAD/completion of his acute NE. Remains on aspirin, high-intensity statin (lipitor 80mg daily), metoprolol, ticagrelor 90mg BID, and ARB. Continues with chest pain - thought pericardial in nature (see below). [place] [address]. Appreciate ICU & Cardiology assistance. (2) CAD (coronary artery disease): Plan: see above (3) Pericarditis: Plan: post-NE pericarditis suspected as the cause of his pleuritic chest pain. limited echo today without pericardial effusion fortunately. started on colchicine 0.6mg BID by cardiology. nitro drip to be weaned off. morphine prn. (4) Alcohol use: Plan: Cont alcohol withdrawal precautions. (5) Anxiety: Plan: resume lexapro 10mg daily - this is a chronic medication for him. (6) Hyperlipidemia: Plan: LDL = 120 HDL = 55 Trigs = 99 High-intensity statin initiated -- lipitor 80mg daily LFTs wnl (7) Prediabetes: Plan: Hba1c 5.8% will psychotherapist counselor patient Plan updated at bedside Admission and Anticipated Discharge Date Admission Date: September 08, 2022 Subjective patient reports ongoing chest pain - lower sternum, worse with inspiration and with laying flat. this pain has continued despite ongoing use of nitro infusion and a decrease in his troponin. the pain is mildly different than the pain he experienced during his STEMI. he does feel a little dyspneic. no nausea or emesis. able to eat. at bedside during the visit. no dysrhythmia seen on tele overnight. Review of Systems Review of Systems: gen - no fevers cv - see HPI pulm - no cough GI - no abd pain Physical Exam Physical Exam: gen - looks uncomfortable, awake, alert neck - no JVD mouth - MMM heart - RRR, s1 s2, no murmur or obvious rub lungs - CTA b/l but airation at bases is poor abd - soft NT ND BS+ ext - no edema, pulses 2+ b/l feet vasc - right radial artery without hematoma or aneurysm Results & Data Results & Data ([facility]) Vital Signs (Past 12 Hours) Vital Signs Temp Pulse Resp BP Pulse Ox O2 Del Method O2 Flow Rate 09/09/22 09:00 Nasal Cannula 09/09/22 16:00 93 H 21 92 09/09/22 16:00 109/71 09/09/22 16:00 37.4 C 09/09/22 16:00 96 H 09/09/22 15:00 90 19 113/75 92 09/09/22 14:00 88 16 112/72 93 09/09/22 13:00 91 H 21 116/74 92 09/09/22 12:00 89 116/79 95 09/09/22 12:00 36.8 C 09/09/22 09:00 36.5 C 09/09/22 11:00 86 16 112/77 94 09/09/22 10:00 82 20 106/73 96 09/09/22 09:00 80 20 114/73 95 09/09/22 08:00 85 22 100/71 95 09/09/22 07:00 78 15 09/09/22 07:00 99/58 L 09/09/22 08:00 72 09/09/22 08:07 Nasal Cannula 2 09/09/22 06:30 73 18 93 09/09/22 06:00 79 14 106/69 93 Laboratory Results Laboratory Results - last 24 hr 09/08/22 09/08/22 09/08/22 16:40 16:40 16:40 WBC RBC Hgb Hct MCV MCH MCHC RDW Std Deviation RDW Coeff of Jem Plt Count MPV Immature Gran % (Auto) Neut % (Auto) Lymph % (Auto) [place] % (Auto) Eos % (Auto) Baso % (Auto) Neut # (Auto) Lymph # (Auto) [place] # (Auto) Eos # (Auto) Baso # (Auto) Immature Gran # (Auto) Sodium Potassium Chloride Carbon Dioxide Anion Gap BUN Creatinine Est Cr Clr Drug Dosing Est GFR ( Amer) Est GFR (Non-Af Amer) BUN/Creatinine Ratio Glucose POC Glucose Estimat Average Glucose Hemoglobin A1c Calcium Phosphorus Magnesium Troponin I High Sens Triglycerides Cholesterol LDL Cholesterol Direct LDL Cholesterol, Calc VLDL Cholesterol, Calc HDL Cholesterol Cholesterol/HDL Ratio Urine Color Yellow Urine Appearance Clear Urine pH 8.5 H Ur Specific [place] 1.044 H Urine Protein Negative Urine Glucose (UA) Negative Urine Ketones Negative Urine Blood Negative Urine Nitrite Negative Urine Bilirubin Negative Urine Urobilinogen Negative Ur Leukocyte Esterase Negative Urine Opiates Screen Pos H U Codeine Confrm GC/MS Pending Ur Morphine (GC/MS) Pending Ur Hydrocodone (GC/MS) Pending Ur Norhydrocodone Pending Ur Noroxycodone Pending Urine Oxycodone (GC/MS) Pending U Oxymorphone GC/MS Pending Ur Methadone, Qual Neg Ur Hydromorphone (GC/MS) Pending Urine Barbiturates Neg Ur Phencyclidine (PCP) Neg U Amphetamin/Meth Scrn Neg MDMA (Ecstasy) Screen Neg U OH-Alprazolam Confrm Pending U Benzodiazepines Scrn Pos H 7-Amino Clonazepam Pending Ur Nordiazepam Confirm Pending U OH-ethylflurazepam Pending U Lorazepam Cnf GC/MS Pending U Oxazepam Confm GC/MS Pending Ur Temazepam Confirm Pending U OH-Triazolam Confirm Pending U OH-Midazolam Confirm Pending Ur Cocaine Metabolite Neg U Marijuana (THC) Screen Neg Drug Screen Comment Pending 09/08/22 09/08/22 09/09/22 18:44 18:55 03:31 WBC 10.58 RBC 4.47 L Hgb 13.5 L Hct 39.3 L MCV 87.9 MCH 30.2 MCHC 34.4 RDW Std Deviation 43.4 RDW Coeff of Jem 13.4 Plt Count 220 MPV 10.3 Immature Gran % (Auto) 0.3 Neut % (Auto) 69.6 Lymph % (Auto) 19.9 [place] % (Auto) 9.2 Eos % (Auto) 0.9 Baso % (Auto) 0.1 Neut # (Auto) 7.36 H Lymph # (Auto) 2.11 [place] # (Auto) 0.97 H Eos # (Auto) 0.10 Baso # (Auto) 0.01 Immature Gran # (Auto) 0.03 H Sodium Potassium Chloride Carbon Dioxide Anion Gap BUN Creatinine Est Cr Clr Drug Dosing Est GFR ( Amer) Est GFR (Non-Af Amer) BUN/Creatinine Ratio Glucose POC Glucose 99 Estimat Average Glucose Hemoglobin A1c Calcium Phosphorus Magnesium Troponin I High Sens 94457.2 H* D Triglycerides Cholesterol LDL Cholesterol Direct LDL Cholesterol, Calc VLDL Cholesterol, Calc HDL Cholesterol Cholesterol/HDL Ratio Urine Color Urine Appearance Urine pH Ur Specific [place] Urine Protein Urine Glucose (UA) Urine Ketones Urine Blood Urine Nitrite Urine Bilirubin Urine Urobilinogen Ur Leukocyte Esterase Urine Opiates Screen U Codeine Confrm GC/MS Ur Morphine (GC/MS) Ur Hydrocodone (GC/MS) Ur Norhydrocodone Ur Noroxycodone Urine Oxycodone (GC/MS) U Oxymorphone GC/MS Ur Methadone, Qual Ur Hydromorphone (GC/MS) Urine Barbiturates Ur Phencyclidine (PCP) U Amphetamin/Meth Scrn MDMA (Ecstasy) Screen U OH-Alprazolam Confrm U Benzodiazepines Scrn 7-Amino Clonazepam Ur Nordiazepam Confirm U OH-ethylflurazepam U Lorazepam Cnf GC/MS U Oxazepam Confm GC/MS Ur Temazepam Confirm U OH-Triazolam Confirm U OH-Midazolam Confirm Ur Cocaine Metabolite U Marijuana (THC) Screen Drug Screen Comment 09/09/22 09/09/22 09/09/22 03:31 03:31 03:31 WBC RBC Hgb Hct MCV MCH MCHC RDW Std Deviation RDW Coeff of Jem Plt Count MPV Immature Gran % (Auto) Neut % (Auto) Lymph % (Auto) [place] % (Auto) Eos % (Auto) Baso % (Auto) Neut # (Auto) Lymph # (Auto) [place] # (Auto) Eos # (Auto) Baso # (Auto) Immature Gran # (Auto) Sodium 134 L Potassium 3.8 Chloride 102 Carbon Dioxide 25 Anion Gap 7 BUN 15 Creatinine 0.84 Est Cr Clr Drug Dosing 144.1 Est GFR ( Amer) 131.5 Est GFR (Non-Af Amer) 113.4 BUN/Creatinine Ratio 17.9 Glucose 95 POC Glucose Estimat Average Glucose 120 Hemoglobin A1c 5.8 H Calcium 9.1 Phosphorus 3.5 Magnesium 1.8 Troponin I High Sens 97500.3 H* D Triglycerides 99 Cholesterol 181 LDL Cholesterol Direct 120 LDL Cholesterol, Calc 106 VLDL Cholesterol, Calc 20 HDL Cholesterol 55 Cholesterol/HDL Ratio 3.3 Urine Color Urine Appearance Urine pH Ur Specific [place] Urine Protein Urine Glucose (UA) Urine Ketones Urine Blood Urine Nitrite Urine Bilirubin Urine Urobilinogen Ur Leukocyte Esterase Urine Opiates Screen U Codeine Confrm GC/MS Ur Morphine (GC/MS) Ur Hydrocodone (GC/MS) Ur Norhydrocodone Ur Noroxycodone Urine Oxycodone (GC/MS) U Oxymorphone GC/MS Ur Methadone, Qual Ur Hydromorphone (GC/MS) Urine Barbiturates Ur Phencyclidine (PCP) U Amphetamin/Meth Scrn MDMA (Ecstasy) Screen U OH-Alprazolam Confrm U Benzodiazepines Scrn 7-Amino Clonazepam Ur Nordiazepam Confirm U OH-ethylflurazepam U Lorazepam Cnf GC/MS U Oxazepam Confm GC/MS Ur Temazepam Confirm U OH-Triazolam Confirm U OH-Midazolam Confirm Ur Cocaine Metabolite U Marijuana (THC) Screen Drug Screen Comment 09/09/22 09/09/22 09/09/22 11:00 11:19 16:13 WBC RBC Hgb Hct MCV MCH MCHC RDW Std Deviation RDW Coeff of Jem Plt Count MPV Immature Gran % (Auto) Neut % (Auto) Lymph % (Auto) [place] % (Auto) Eos % (Auto) Baso % (Auto) Neut # (Auto) Lymph # (Auto) [place] # (Auto) Eos # (Auto) Baso # (Auto) Immature Gran # (Auto) Sodium Potassium Chloride Carbon Dioxide Anion Gap BUN Creatinine Est Cr Clr Drug Dosing Est GFR ( Amer) Est GFR (Non-Af Amer) BUN/Creatinine Ratio Glucose POC Glucose 102 H 102 H Estimat Average Glucose Hemoglobin A1c Calcium Phosphorus Magnesium Troponin I High Sens 96897.6 H* D Triglycerides Cholesterol LDL Cholesterol Direct LDL Cholesterol, Calc VLDL Cholesterol, Calc HDL Cholesterol Cholesterol/HDL Ratio Urine Color Urine Appearance Urine pH Ur Specific [place] Urine Protein Urine Glucose (UA) Urine Ketones Urine Blood Urine Nitrite Urine Bilirubin Urine Urobilinogen Ur Leukocyte Esterase Urine Opiates Screen U Codeine Confrm GC/MS Ur Morphine (GC/MS) Ur Hydrocodone (GC/MS) Ur Norhydrocodone Ur Noroxycodone Urine Oxycodone (GC/MS) U Oxymorphone GC/MS Ur Methadone, Qual Ur Hydromorphone (GC/MS) Urine Barbiturates Ur Phencyclidine (PCP) U Amphetamin/Meth Scrn MDMA (Ecstasy) Screen U OH-Alprazolam Confrm U Benzodiazepines Scrn 7-Amino Clonazepam Ur Nordiazepam Confirm U OH-ethylflurazepam U Lorazepam Cnf GC/MS U Oxazepam Confm GC/MS Ur Temazepam Confirm U OH-Triazolam Confirm U OH-Midazolam Confirm Ur Cocaine Metabolite U Marijuana (THC) Screen Drug Screen Comment PG Care Time/CCT Total # of Minutes Spent Total Time Spent with Patient: Total time spent is greater than 50% in coordination of care (as documented) at patient's floor/unit and/or counseling patient: Coding Level of Care Code 19500 Subseq Hosp Care Lvl 2 Diagnoses STEMI (ST elevation myocardial infarction) I21.3 CAD (coronary artery disease) I25.10 Pericarditis I31.9 Alcohol use Z78.9 Anxiety F41.9 Hyperlipidemia E78.5 Prediabetes R73.03
[2022-09-10] MEDS: ACETAMINOPHEN 325 MG TAB PO SCH ×2 (00:58→04:44)
[2022-09-10] MEDS: MoRPHine SULFATE 2 MG/ML CARP IV PRN ×4 (00:58→11:12)
[2022-09-10 04:36] LABS: Basophils # (auto) 0.02 K/uL (0-0.2); Basophils % (auto) 0.2 %; Eosinophils # (auto) 0.03 K/uL (0-0.50); Eosinophils % (auto) 0.2 %; Hematocrit (blood only) 42.3 % (40.1-51.0); Immature Granulocytes # (auto) 0.05 K/uL (0.00-0.02); Immature Granulocytes % (auto) 0.4 %; Lymphocytes # (auto) 1.51 K/uL (1.2-3.4); Lymphocytes % (auto) 12.5 %; Mean Corpuscular Hemoglobin 30.1 pg (25.0-34.0); Mean Corpuscular Hgb Conc 33.1 g/dL (32.0-36.0); Mean Platelet Volume 10.5 fL (9.4-12.4); Monocytes # (auto) 1.61 K/uL (0.24-0.82); Monocytes % (auto) 13.4 %; Neutrophils # (auto) 8.82 K/uL (1.4-6.5); Neutrophils % (auto) 73.3 %; Platelet Count 209 K/uL (130-400); RDW Coefficient of Variation 13.6 % (11.5-14.5); RDW Standard Deviation 46.1 fL (36.4-46.3); Red Blood Count 4.65 M/uL (4.63-6.08); White Blood Count 12.04 K/ul (4.8-10.8)
[2022-09-10] MEDS: METOPROLOL TARTRATE 25 MG TAB PO SCH ×4 (04:44→20:21)
[2022-09-10 04:58] LABS: BUN Creatinine Ratio 17.3 (10-20); Calcium 9.5 mg/dl (8.5-10.1); Creatinine Clr Calc Pharmacy 148.3 ml/min; Est GFR (African American) 133.5 ml/min; Est GFR (Non-African American) 115.1 ml/min; Phosphorus 3.1 mg/dl (2.5-4.9); Potassium 4.1 mmol/L (3.5-5.1)
[2022-09-10] MEDS: ICU ELECTROLYTE REPLACEMENT PROTOCOL SCH (05:21)
[2022-09-10] MEDS: MAGNESIUM SULFATE / D5W 1 GM/100 ML BAG IV SCH ×2 (05:50→07:40)
--- NOTE | 2022-09-10 07:47 | Critical Care Progress Note ---
Date of Service September 10, 2022 Assessment & Plan (1) STEMI (ST elevation myocardial infarction): Plan Impression: 37-year-old male without significant past medical history presents with acute coronary syndrome status post drug-eluting stent to the mid LAD with residual thrombus. He likely has post myocardial injury pericarditis which is improving. 24-hour events: Continue treatment for pericardial inflammation. Recommendations: 1. ST elevation myocardial infarction status post drug-eluting stent. Continue beta-nick Brilinta aspirin and WILD inhibitor as tolerated by blood pressure. 2. Post myocardial injury pericarditis. Better this morning. Avoid nonsteroidal anti-inflammatory agents. No indication for glucocorticoids or colchicine at this time. Colchicine started by cardiology. 3. Troponin peaked 4. Advised the patient that I would not recommend nicotine replacement in the setting of acute coronary syndrome. Smoking cessation recommended. Okay to transfer to the floor. We will sign off. Feel free to contact us if we can be of additional assistance Admission and Anticipated Discharge Date Admission Date: September 08, 2022 Subjective Patient seen and examined. EMR reviewed. The patient states that he feels better this morning. His pain is improving. He is not having any shortness of breath. He tolerated a diet. He is out of bed. He feels positionally better when he leans forward. Review of Systems Review of Systems: All systems reviewed & are unremarkable except as noted in Subjective Physical Exam Constitutional: WD/WN, vitals as above Neck: trachea midline, no thyromegaly Respiratory: normal respiratory effort, lungs clear to auscultation Cardiovascular: RRR, no murmur, no edema Gastrointestinal (Abdomen): normal bowel sounds, soft, nontender, no hepatosplenomegaly Musculoskeletal: Extremities: extremities normal to inspection Skin: no rashes, warm and dry Lymphatic: no cervical lymphadenopathy Results & Data Results & Data ([facility]) Vital Signs (Past 12 Hours) Vital Signs Temp Pulse Resp BP Pulse Ox 09/10/22 06:00 77 14 107/75 95 09/09/22 20:00 37.0 C 09/10/22 00:00 37.0 C 09/10/22 05:00 84 17 114/79 94 09/10/22 05:58 37.0 C 09/10/22 04:00 81 16 102/74 93 09/10/22 03:00 78 5 L 109/73 96 11/27/22 02:00 81 16 104/74 11/27/22 01:00 92 H 25 H 106/72 92 09/10/22 00:00 89 18 114/77 91 09/09/22 23:30 90 19 95 09/09/22 23:00 87 19 112/81 90 09/09/22 22:30 89 19 93 09/09/22 22:00 91 H 21 127/89 89 L 09/09/22 21:30 96 H 24 94 09/09/22 21:00 95 H 17 126/94 92 09/10/22 00:00 91 H 09/09/22 20:30 94 H 25 H 94 09/09/22 20:00 95 H 29 H 134/99 96 Critical Care Results & Data Vital Signs (Past 12 Hours) Vital Signs Temp Pulse Resp BP Pulse Ox 09/10/22 06:00 77 14 107/75 95 09/09/22 20:00 37.0 C 09/10/22 00:00 37.0 C 09/10/22 05:00 84 17 114/79 94 09/10/22 05:58 37.0 C 09/10/22 04:00 81 16 102/74 93 09/10/22 03:00 78 5 L 109/73 96 09/10/22 02:00 81 16 104/74 09/10/22 01:00 92 H 25 H 106/72 92 09/10/22 00:00 89 18 114/77 91 09/09/22 23:30 90 19 95 09/09/22 23:00 87 19 112/81 90 09/09/22 22:30 89 19 93 09/09/22 22:00 91 H 21 127/89 89 L 09/09/22 21:30 96 H 24 94 09/09/22 21:00 95 H 17 126/94 92 09/10/22 00:00 91 H 09/09/22 20:30 94 H 25 H 94 09/09/22 20:00 95 H 29 H 134/99 96 Lab & Micro Results (Past 24 Hours) RBC 4.65 M/uL (4.63-6.08) 09/10/22 WBC 12.04 K/ul (4.8-10.8) H 09/10/22 Hgb 14.0 g/dl (14.0-18.0) 09/10/22 Hct 42.3 % (40.1-51.0) 09/10/22 MCV 91.0 fL (80.0-100.0) 09/10/22 MCH 30.1 pg (25.0-34.0) 09/10/22 MCHC 33.1 g/dL (32.0-36.0) 09/10/22 RDW Standard Deviation 46.1 fL (36.4-46.3) 09/10/22 RDW Coefficient of Variation 13.6 % (11.5-14.5) 09/10/22 Plt Count 209 K/uL (130-400) 09/10/22 MPV 10.5 fL (9.4-12.4) 09/10/22 Neutrophils (%) (Auto) 73.3 % 09/10/22 Lymphocytes (%) (Auto) 12.5 % 09/10/22 Monocytes # (Auto) 1.61 K/uL (0.24-0.82) H 09/10/22 Eosinophils # (Auto) 0.03 K/uL (0-0.50) 09/10/22 Immature Granulocyte % (Auto) 0.4 % 09/10/22 Neutrophils # (Auto) 8.82 K/uL (1.4-6.5) H 09/10/22 Lymphocytes # (Auto) 1.51 K/uL (1.2-3.4) 09/10/22 Monocytes # (Auto) 1.61 K/uL (0.24-0.82) H 09/10/22 Eosinophils # (Auto) 0.03 K/uL (0-0.50) 09/10/22 Basophils # (Auto) 0.02 K/uL (0-0.2) 09/10/22 Immature Granulocyte # (Auto) 0.05 K/uL (0.00-0.02) H 09/10 Na 133 mmol/L (136-145) L 09/10/22 K 4.1 mmol/L (3.5-5.1) 09/10/22 Cl 100 mmol/L (98-107) 09/10/22 CO2 28 mmol/L (21-32) 09/10/22 Anion Gap 5 (3-11) 09/10/22 BUN 14 mg/dl (6-23) 09/10/22 Creatinine 0.81 mg/dl (0.6-1.4) 09/10/22 Estimated GFR ( Amer) 133.5 ml/min 09/10/22 Estimated GFR (Non-Af Amer) 115.1 ml/min 09/10/22 BUN/Creatinine Ratio 17.3 (10-20) 09/10/22 Glu 96 mg/dl (70-99(Fasting)) 09/10/22 Ca 9.5 mg/dl (8.5-10.1) 09/10/22 Phosphorus Level 3.1 mg/dl (2.5-4.9) 09/10/22 Mg 2.0 mg/dl (1.7-2.4) 09/10/22 04:14 Calcium Level 9.5 mg/dl (8.5-10.1) 09/10/22 04:14 I & O Totals 24 Hours 09/09/22 09/10/22 09/11/22 06:59 06:59 06:59 Intake Total 2822.10 / 2822.10 722.95 / 722.95 91.667 / 91.667 Output Total 1200 / 1200 1000 / 1000 Balance 1622.10 / 1622.10 -277.05 / -277.05 91.667 / 91.667 Cumulative 09/08/22 07:38 thru 09/10/22 07:40 Intake Total 3636.717 Output Total 2200 Balance 1436.717 RT Ventilator Mngmt (Last Documented) Ventilator Ordered Settings Respiratory Rate 14 09/10/22 06:00 Ventilator - PT Measurements Respiratory Rate 14 Coding Level of Care Code 85266 Subseq Hosp Care Lvl 2 Diagnoses STEMI (ST elevation myocardial infarction) I21.3
[2022-09-10] MEDS: TICAGRELOR 90 MG TAB PO SCH ×2 (08:20→20:21)
[2022-09-10] MEDS: ESCITALOPRAM OXALATE 10 MG TAB PO SCH (08:20)
[2022-09-10] MEDS: COLCHICINE 0.6 MG TAB PO SCH ×2 (08:21→20:21)
[2022-09-10] MEDS: ATORVASTATIN 40 MG TAB PO SCH (08:21)
[2022-09-10] MEDS: LOSARTAN POTASSIUM 25 MG TAB PO SCH (08:21)
[2022-09-10] MEDS: ASPIRIN 81 MG ECTAB PO SCH (08:21)
[2022-09-10] MEDS: ICU Protocol for HYPERglycemia SCH (08:22)
--- NOTE | 2022-09-10 08:58 | Cardiology Progress Note ---
Date of Service September 10, 2022 Assessment & Plan (1) STEMI (ST elevation myocardial infarction): Plan Tolerating medical therapy. continues to have pleuritic chest pain suggestive of pericarditis associated with his infarct. Colchicine started. Continue p.r.n. narcotics. No evidence of effusion on echocardiogram yesterday. No pericardial friction rub on examination today. Continue dual anti-platelet therapy Will convert metoprolol to twice daily dosing Continue current dose of losartan. nitroglycerin has been discontinued in this may allow us to increase losartan later today. Liberalize activity agree with transfer to the PCU Admission and Anticipated Discharge Date Admission Date: September 08, 2022 Subjective the patient reports feeling better overnight. He did struggle with persistent pleuritic chest discomfort yesterday. He slept upright in the bed as lying down produces worsening symptoms. This morning he states he feels better but with deep inspiration continues to have discomfort. No dizziness or lightheadedness. No other breathing difficulty. Tolerating a diet. Review of Systems Review of Systems: Per HPI Physical Exam Physical Exam: The patient is alert and oriented. Mood and affect appeared normal. He answered all questions appropriately. HEENT: Pupils are equal and reactive to light and accommodation. Extraocular movements are intact. The sclerae are anicteric. Neuro: Cranial nerves intact Lungs: Clear to auscultation bilaterally. He has good air movement without use of accessory muscles. No rales wheezes or rhonchi. No pericardial friction rub Cardiac: Heart demonstrates a regular rate and rhythm. Normal S1 and S2. No murmurs on examination. Pulses: The patient has palpable radial pulses bilaterally that are equal in intensity Extremities: There was no evidence of hypoperfusion. There is no cyanosis or clubbing. There is no edema. Palpable radial pulse on the right hand which is well perfused. Skin: I did not appreciate any rashes on examination today. Results & Data ([facility]) Vital Signs (Past 12 Hours) Vital Signs Temp Pulse Resp BP Pulse Ox O2 Del Method 09/10/22 08:31 Room Air 09/10/22 06:00 77 14 107/75 95 09/10/22 00:00 37.0 C 09/10/22 05:00 84 17 114/79 94 09/10/22 05:58 37.0 C 09/10/22 04:00 81 16 102/74 93 09/10/22 03:00 78 5 L 109/73 96 09/10/22 02:00 81 16 104/74 09/10/22 01:00 92 H 25 H 106/72 92 09/10/22 00:00 89 18 114/77 91 09/09/22 23:30 90 19 95 09/09/22 23:00 87 19 112/81 90 09/09/22 22:30 89 19 93 09/09/22 22:00 91 H 21 127/89 89 L 09/09/22 21:30 96 H 24 94 09/09/22 21:00 95 H 17 126/94 92 09/10/22 00:00 91 H Laboratory Results Abnormal Lab Results 09/09/22 09/09/22 09/09/22 11:00 11:19 16:13 WBC RBC Hgb Hct MCV MCH MCHC RDW Std Deviation RDW Coeff of Jem Plt Count MPV Immature Gran % (Auto) Neut % (Auto) Lymph % (Auto) [place] % (Auto) Eos % (Auto) Baso % (Auto) Neut # (Auto) Lymph # (Auto) [place] # (Auto) Eos # (Auto) Baso # (Auto) Immature Gran # (Auto) Sodium Potassium Chloride Carbon Dioxide Anion Gap BUN Creatinine Est Cr Clr Drug Dosing Est GFR ( Amer) Est GFR (Non-Af Amer) BUN/Creatinine Ratio Glucose POC Glucose 102 H 102 H Calcium Phosphorus Magnesium Troponin I High Sens 02607.6 H* D 09/09/22 09/10/22 09/10/22 20:18 04:14 04:14 WBC 12.04 H RBC 4.65 Hgb 14.0 Hct 42.3 MCV 91.0 MCH 30.1 MCHC 33.1 RDW Std Deviation 46.1 RDW Coeff of Jem 13.6 Plt Count 209 MPV 10.5 Immature Gran % (Auto) 0.4 Neut % (Auto) 73.3 Lymph % (Auto) 12.5 [place] % (Auto) 13.4 Eos % (Auto) 0.2 Baso % (Auto) 0.2 Neut # (Auto) 8.82 H Lymph # (Auto) 1.51 [place] # (Auto) 1.61 H Eos # (Auto) 0.03 Baso # (Auto) 0.02 Immature Gran # (Auto) 0.05 H Sodium 133 L Potassium 4.1 Chloride 100 Carbon Dioxide 28 Anion Gap 5 BUN 14 Creatinine 0.81 Est Cr Clr Drug Dosing 148.3 Est GFR ( Amer) 133.5 Est GFR (Non-Af Amer) 115.1 BUN/Creatinine Ratio 17.3 Glucose 96 POC Glucose 113 H Calcium 9.5 Phosphorus 3.1 Magnesium 2.0 Troponin I High Sens 09/10/22 05:45 WBC RBC Hgb Hct MCV MCH MCHC RDW Std Deviation RDW Coeff of Jem Plt Count MPV Immature Gran % (Auto) Neut % (Auto) Lymph % (Auto) [place] % (Auto) Eos % (Auto) Baso % (Auto) Neut # (Auto) Lymph # (Auto) [place] # (Auto) Eos # (Auto) Baso # (Auto) Immature Gran # (Auto) Sodium Potassium Chloride Carbon Dioxide Anion Gap BUN Creatinine Est Cr Clr Drug Dosing Est GFR ( Amer) Est GFR (Non-Af Amer) BUN/Creatinine Ratio Glucose POC Glucose 133 H Calcium Phosphorus Magnesium Troponin I High Sens PG Care Time/CCT Total # of Minutes Spent Total Time Spent with Patient: Total time spent is greater than 50% in coordination of care (as documented) at patient's floor/unit and/or counseling patient: Coding Level of Care Code 10795 Subseq Hosp Care Lvl 2 Diagnoses STEMI (ST elevation myocardial infarction) I21.3
--- NOTE | 2022-09-10 10:51 | Hospitalist Progress Note ---
Date of Service September 10, 2022 Assessment & Plan (1) STEMI (ST elevation myocardial infarction): Plan: 2nd to 95% early-mid LAD lesion and occluded distal LAD. PCI of earlymid LAD with single drug-eluting stent (4.0 x 18 mm Carlos; postdilated with 4.5 NC). Residual thrombus in apical LAD (despite IC vasodilators/apical LAD angioplasty). RCA and left Cx without any disease. s/p admission to ICU following his cath - ok to come out of ICU today as nitro drip has been weaned off. Remains on aspirin, high-intensity statin (lipitor 80mg daily), metoprolol, ticagrelor 90mg BID, and ARB. Continues with chest pain - thought pericardial in nature (see below[place] [address]. Appreciate ICU & Cardiology assistance. (2) CAD (coronary artery disease): Plan: see above (3) Pericarditis: Plan: post-[place] pericarditis suspected as the cause of his pleuritic chest pain. most recent EKG with diffuse ST segment elevation c/w such. limited echo 09/09 without pericardial effusion. started on colchicine 0.6mg BID by cardiology yesterday. nitro drip off. morphine prn. (4) Alcohol use: Plan: Cont alcohol withdrawal precautions. Formal AWSS protocol instituted due to development of tachycardia later in the day which could be sign of early etoh withdrawal. Gabapentin protocol started. Thiamine/folic acid supplementation. (5) Anxiety: Plan: cont lexapro 10mg daily (6) Hyperlipidemia: Plan: LDL = 120 HDL = 55 Trigs = 99 High-intensity statin initiated -- lipitor 80mg daily LFTs wnl (7) Prediabetes: Plan: Hba1c 5.8% will skilled nursing facility counselor patient (8) Constipation: Plan: add miralax once daily if not effective then add senna (9) Leukocytosis: Plan: due to recent [place]? due to pericarditis? due to other process? given ongoing O2 requirement will check CXR if any fever then blood cx's, urine cx, etc Plan updated at bedside once again PT consult requested ok to Tx to PCU status today Admission and Anticipated Discharge Date Admission Date: September 08, 2022 Subjective patient still with pleuritic chest pain but not as severe as yesterday sitting up certainly helps the pain has an element of dyspnea when he has the pain he still cannot take deep breaths due to the pain he is not coughing eating well very little activity since coming to the hospital; minimal time out of bed tele overnight wnl at bedside - multiple questions answered Review of Systems Review of Systems: gen - no fevers cv - see HPI; no edema pulm - no cough, no sputum GI - no nausea or emesis; constipated -- last BM was at home Physical Exam Physical Exam: gen - looks a little better today but still unwell; NAD neck - no JVD mouth - MMM heart - RRR, s1 s2, no murmur or obvious rub lungs - CTA b/l but airation in the bases remains poor abd - soft NT ND BS+ ext - no edema, pulses 2+ b/l feet vasc - right radial artery without hematoma or aneurysm psych - awake, alert, oriented x 3 Results & Data Results & Data ([facility]) Vital Signs (Past 12 Hours) Vital Signs Temp Pulse Resp BP Pulse Ox O2 Del Method 09/10/22 10:00 94 H 20 96 09/10/22 10:00 131/85 09/10/22 09:00 91 H 21 90 09/10/22 09:00 119/79 09/10/22 08:00 90 23 93 09/10/22 08:00 136/66 09/10/22 07:00 77 12 96 09/10/22 07:00 115/75 09/10/22 08:00 78 09/10/22 08:00 37.3 C 09/10/22 08:31 Room Air 09/10/22 06:00 77 14 107/75 95 09/10/22 00:00 37.0 C 09/10/22 05:00 84 17 114/79 94 09/10/22 05:58 37.0 C 09/10/22 04:00 81 16 102/74 93 09/10/22 03:00 78 5 L 109/73 96 09/10/22 02:00 81 16 104/74 09/10/22 01:00 92 H 25 H 106/72 92 09/10/22 00:00 89 18 114/77 91 09/09/22 23:30 90 19 95 09/09/22 23:00 87 19 112/81 90 09/10/22 00:00 91 H Laboratory Results Laboratory Results - last 24 hr 09/09/22 09/09/22 09/09/22 11:00 11:19 16:13 WBC RBC Hgb Hct MCV MCH MCHC RDW Std Deviation RDW Coeff of Jem Plt Count MPV Immature Gran % (Auto) Neut % (Auto) Lymph % (Auto) [place] % (Auto) Eos % (Auto) Baso % (Auto) Neut # (Auto) Lymph # (Auto) [place] # (Auto) Eos # (Auto) Baso # (Auto) Immature Gran # (Auto) Sodium Potassium Chloride Carbon Dioxide Anion Gap BUN Creatinine Est Cr Clr Drug Dosing Est GFR ( Amer) Est GFR (Non-Af Amer) BUN/Creatinine Ratio Glucose POC Glucose 102 H 102 H Calcium Phosphorus Magnesium Troponin I High Sens 79834.6 H* D 09/09/22 09/10/22 09/10/22 20:18 04:14 04:14 WBC 12.04 H RBC 4.65 Hgb 14.0 Hct 42.3 MCV 91.0 MCH 30.1 MCHC 33.1 RDW Std Deviation 46.1 RDW Coeff of Jem 13.6 Plt Count 209 MPV 10.5 Immature Gran % (Auto) 0.4 Neut % (Auto) 73.3 Lymph % (Auto) 12.5 [place] % (Auto) 13.4 Eos % (Auto) 0.2 Baso % (Auto) 0.2 Neut # (Auto) 8.82 H Lymph # (Auto) 1.51 [place] # (Auto) 1.61 H Eos # (Auto) 0.03 Baso # (Auto) 0.02 Immature Gran # (Auto) 0.05 H Sodium 133 L Potassium 4.1 Chloride 100 Carbon Dioxide 28 Anion Gap 5 BUN 14 Creatinine 0.81 Est Cr Clr Drug Dosing 148.3 Est GFR ( Amer) 133.5 Est GFR (Non-Af Amer) 115.1 BUN/Creatinine Ratio 17.3 Glucose 96 POC Glucose 113 H Calcium 9.5 Phosphorus 3.1 Magnesium 2.0 Troponin I High Sens 09/10/22 05:45 WBC RBC Hgb Hct MCV MCH MCHC RDW Std Deviation RDW Coeff of Jem Plt Count MPV Immature Gran % (Auto) Neut % (Auto) Lymph % (Auto) [place] % (Auto) Eos % (Auto) Baso % (Auto) Neut # (Auto) Lymph # (Auto) [place] # (Auto) Eos # (Auto) Baso # (Auto) Immature Gran # (Auto) Sodium Potassium Chloride Carbon Dioxide Anion Gap BUN Creatinine Est Cr Clr Drug Dosing Est GFR ( Amer) Est GFR (Non-Af Amer) BUN/Creatinine Ratio Glucose POC Glucose 133 H Calcium Phosphorus Magnesium Troponin I High Sens PG Care Time/CCT Total # of Minutes Spent Total Time Spent with Patient: Total time spent is greater than 50% in coordination of care (as documented) at patient's floor/unit and/or counseling patient: Coding Level of Care Code 08758 Subseq Hosp Care Lvl 3 Diagnoses STEMI (ST elevation myocardial infarction) I21.3 CAD (coronary artery disease) I25.10 Pericarditis I31.9 Alcohol use Z78.9 Anxiety F41.9 Hyperlipidemia E78.5 Prediabetes R73.03 Constipation K59.00 Leukocytosis D72.829
[2022-09-10] MEDS: POLYETHYLENE (MIRALAX) 17 GM PACK PO SCH (11:12)
--- NOTE | 2022-09-10 11:34 | XRay Report ---
XR chest 1V portable HISTORY: 37 years-old Male hypoxia, recent [place] acute hypoxia with chest pain COMPARISON: Chest radiograph 09/08/2022 TECHNIQUE: AP view of the chest FINDINGS: Cardiac silhouette is upper limits of normal in size. No pneumothorax or overt pulmonary edema. Trace pleural effusions with mild bibasilar airspace opacities. Bones appear grossly intact. IMPRESSION: Trace pleural effusions with bibasilar opacities suggestive of atelectasis versus an infe ctious or inflammatory pneumonitis, new from prior. ACT 112: Negative or not required by law. The above report was generated using voice recognition software. It may contain grammatical, syntax o r spelling errors. Electronically signed by: Preston Mobley M.D. 09/10/2022 11:33 AM
[2022-09-10 11:46] LABS: 7-Aminoclonaz, Confirm NEGATIVE ng/mL (<25); Codeine Urine NEGATIVE ng/mL (<50); Hydro-Alp Ur, GC/MS NEGATIVE ng/mL (<25); Hydrocodone Urine NEGATIVE ng/mL (<50); Hydromor Urine NEGATIVE ng/mL (<50); Hydroxyethylflurazepam, Conf NEGATIVE ng/mL (<50); Hydroxymidazolam Ur, GC/MS 859 ng/mL (<50); Hydroxytriazolam NEGATIVE ng/mL (<50); Lorazepam, Ur GC/MS 441 ng/mL (<50); Morphine Urine 449 ng/mL (<50); Nordiazepam, Confirm NEGATIVE ng/mL (<50); Norhydrocodone Conf Ur NEGATIVE ng/mL (<50); Noroxycodone Urine NEGATIVE ng/mL (<50); Oxazepam Ur, GC/MS NEGATIVE ng/mL (<50); Oxycodone Urine NEGATIVE ng/mL (<50); Oxymorph Urine NEGATIVE ng/mL (<50); Temazepam, Confirm NEGATIVE ng/mL (<50)
[2022-09-10] MEDS ORDERED: LORazepam 1 MG TAB PO PRN (18:29)
[2022-09-10] MEDS ORDERED: GABAPENTIN 600 MG TAB PO ONE (18:47)
[2022-09-10] MEDS ORDERED: GABAPENTIN 600MG ALCOHOL WITHDRAWAL LOAD PO STA (18:47)
[2022-09-10] MEDS: FOLIC ACID 1 MG TAB PO SCH (20:20)
[2022-09-10] MEDS: THIAMINE HCL 100 MG TAB PO SCH (20:22)
[2022-09-11] MEDS: GABAPENTIN 100 MG CAP PO SCH ×2 (01:58→06:25)
[2022-09-11] MEDS: MoRPHine SULFATE 2 MG/ML CARP IV PRN (02:12)
[2022-09-11 07:38] LABS: Basophils # (auto) 0.02 K/uL (0-0.2); Basophils % (auto) 0.2 %; Eosinophils # (auto) 0.08 K/uL (0-0.50); Eosinophils % (auto) 0.7 %; Hematocrit (blood only) 43.6 % (40.1-51.0); Hemoglobin 14.4 g/dl (14.0-18.0); Immature Granulocytes # (auto) 0.03 K/uL (0.00-0.02); Immature Granulocytes % (auto) 0.3 %; Lymphocytes # (auto) 1.36 K/uL (1.2-3.4); Lymphocytes % (auto) 12.7 %; Mean Corpuscular Hemoglobin 29.8 pg (25.0-34.0); Mean Corpuscular Volume 90.3 fL (80.0-100.0); Mean Platelet Volume 10.2 fL (9.4-12.4); Monocytes # (auto) 1.25 K/uL (0.24-0.82); Monocytes % (auto) 11.7 %; Neutrophils # (auto) 7.97 K/uL (1.4-6.5); Neutrophils % (auto) 74.4 %; Platelet Count 247 K/uL (130-400); RDW Coefficient of Variation 13.3 % (11.5-14.5); RDW Standard Deviation 44.2 fL (36.4-46.3); Red Blood Count 4.83 M/uL (4.63-6.08); White Blood Count 10.71 K/ul (4.8-10.8)
[2022-09-11 08:00] LABS: BUN Creatinine Ratio 17.7 (10-20); Calcium 9.9 mg/dl (8.5-10.1); Creatinine Clr Calc Pharmacy 150.3 ml/min; Est GFR (African American) 134.8 ml/min; Est GFR (Non-African American) 116.3 ml/min; Potassium 4.1 mmol/L (3.5-5.1)
[2022-09-11] MEDS: ATORVASTATIN 40 MG TAB PO SCH (08:04)
[2022-09-11] MEDS: ASPIRIN 81 MG ECTAB PO SCH (08:04)
[2022-09-11] MEDS: COLCHICINE 0.6 MG TAB PO SCH ×2 (08:05→20:51)
[2022-09-11] MEDS: FOLIC ACID 1 MG TAB PO SCH (08:05)
[2022-09-11] MEDS: ESCITALOPRAM OXALATE 10 MG TAB PO SCH (08:05)
[2022-09-11] MEDS: LOSARTAN POTASSIUM 25 MG TAB PO SCH (08:05)
[2022-09-11] MEDS: TICAGRELOR 90 MG TAB PO SCH (08:06)
[2022-09-11] MEDS: THIAMINE HCL 100 MG TAB PO SCH ×2 (08:06→20:52)
[2022-09-11] MEDS: METOPROLOL TARTRATE 25 MG TAB PO SCH (08:06)
[2022-09-11] MEDS: POLYETHYLENE (MIRALAX) 17 GM PACK PO SCH (08:06)
--- NOTE | 2022-09-11 10:30 | Cardiology Progress Note ---
Date of Service September 11, 2022 Assessment & Plan (1) CAD (coronary artery disease): Plan: Post primary PCI to mid LAD with single JEAN, angioplasty to apical LAD No significant known culprit disease 2. Post [place] pericarditis 3. Dyslipidemia 4. Preserved LV function with apical wall motion abnormality Troponin has peaked. Pleuritic/positional chest pain improving. Hemodynamically and electrically stable. No signs of heart failure on exam. No apparent access site complications. Repeat limited echo today --> LV function preserved but apex remains akinetic and appears to have LV thrombus. -- Recommend starting anticoagulation with DOAC -- Start Eliquis 5mg BID -- Transition Ticagrelor to Clopidogrel. (Will need clopidogrel load of 300mg, than 75 mg daily. -- Continue ASA 81 mg daily Start PPI Increase metoprolol to 50 mg twice daily, continue current losartan 25 mg daily Continue current statin If up feeling OK when up walking this afternoon still OK with him being discharged today. Follow-up with me in 1 week. Admission and Anticipated Discharge Date Admission Date: September 08, 2022 Subjective Still with some residual chest pain, worse when takes a deep breath, coughs and slightly worse when sitting up. Pain improved from yesterday. Denies significant shortness of breath. Telemetry reviewedno events. Review of Systems Review of Systems: All systems reviewed & are unremarkable except as noted in HPI & below Physical Exam Physical Exam: General: Comfortable HEENT: Sclerae anicteric Lungs: Few crackles at right base Cardiac: Regular, no murmurs Vascular: right radial artery access site with no ecchymosis, hematoma. Distal pulse and sensation intact. Abdomen: Soft, nontender Extremities: Well perfused, no peripheral edema Neuro: Nonfocal Psych: Alert orient x3, normal affect and mood Results & Data ([facility]) Vital Signs (Past 12 Hours) Vital Signs Temp Pulse Pulse Resp BP Pulse Ox O2 Del Method 09/11/22 07:59 98.6 F 103 H 24 134/91 95 Room Air 09/11/22 06:46 98.4 F 91 H 18 111/77 96 Nasal Cannula 09/11/22 02:44 98.6 F 92 H 16 120/90 95 Nasal Cannula 09/11/22 00:00 104 H 09/10/22 23:14 99.5 F 94 H 18 101/71 93 Room Air O2 Flow Rate 09/11/22 07:59 09/11/22 06:46 2 09/11/22 02:44 2 09/11/22 00:00 09/10/22 23:14 PG Care Time/CCT Total # of Minutes Spent Total Time Spent with Patient: Total time spent is greater than 50% in coordination of care (as documented) at patient's floor/unit and/or counseling patient: Coding Level of Care Code 37132 Subseq Hosp Care Lvl 3 Diagnoses CAD (coronary artery disease) I25.10
--- NOTE | 2022-09-11 13:28 | XCELERA ---
[id number] \\[id number]
[2022-09-11] MEDS ORDERED: HYDROCODONE/ACETAMOPHEN 5/325MG TAB PO PRN (17:03)
[2022-09-11] MEDS ORDERED: GABAPENTIN 600 MG TAB PO SCH (19:00)
[2022-09-11] MEDS ORDERED: CLOPIDOGREL BISULFATE 300 MG TAB PO STA (19:53)
[2022-09-11] MEDS: APIXABAN 5 MG TABLET PO SCH (20:50)
[2022-09-11] MEDS: METOPROLOL TARTRATE 50 MG TAB PO SCH (20:51)
--- NOTE | 2022-09-11 21:19 | Hospitalist Progress Note ---
Date of Service September 11, 2022 Assessment & Plan (1) STEMI (ST elevation myocardial infarction): Plan: 2nd to 95% early-mid LAD lesion and occluded distal LAD. PCI of earlymid LAD with single drug-eluting stent (4.0 x 18 mm Carlos; postdilated with 4.5 NC). Residual thrombus in apical LAD (despite IC vasodilators/apical LAD angioplasty). RCA and left Cx without any disease. s/p admission to ICU following his cath - required nitro drip for chest pain post-cath. Remains on aspirin, high-intensity statin (lipitor 80mg daily), metoprolol, ticagrelor 90mg BID, and ARB. Due to discovery of LV thrombus we are stopping ticagrelor and changing to plavix today - start with 300mg load followed by 75mg daily. Add Eliquis for LV thrombus[place] [address]. Appreciate Cardiology assistance. (2) CAD (coronary artery disease): Plan: see above increase metoprolol to 50mg BID per recommendations from cardiology (3) Pericarditis: Plan: post-[place] pericarditis suspected as the cause of his pleuritic chest pain. most recent EKG with diffuse ST segment elevation c/w such. limited echo 09/09 and 09/11 without pericardial effusion. cont colchicine 0.6mg BID by cardiology. nitro drip off. pain improved. (4) Alcohol use: Plan: Cont alcohol withdrawal precautions. Gabapentin protocol. Ativan prn. Thiamine/folic acid supplementation. (5) Anxiety: Plan: cont lexapro 10mg daily (6) Hyperlipidemia: Plan: LDL = 120 HDL = 55 Trigs = 99 High-intensity statin initiated -- lipitor 80mg daily LFTs wnl (7) Prediabetes: Plan: Hba1c 5.8% will auto travel counselor patient (8) Constipation: Plan: resolved cont miralax once daily if not effective then add senna (9) Leukocytosis: Plan: improved likely reactive from recent [place] and pericarditis given ongoing O2 requirement repeat cxr obtained - no convincing evidence of pneumonia, basilar infiltrates likely 2nd to atelectasis if any fever then blood cx's, urine cx, etc cont pulm toilet - flutter valve, incentive ayad (10) LV (left ventricular) mural thrombus following NM: Plan: seen on today's echo Dr Dempsey recommending Eliquis 5mg BID for such adding PPI due to triple therapy (plavix, asa, Eliquis) Plan updated at bedside once again cont to ambulate d/c tomorrow? Admission and Anticipated Discharge Date Admission Date: September 08, 2022 Subjective patient overall feeling better less pleuritic chest pain more comfortable overall with walking no SOLANO telemetry wnl overnight patient does indeed drink etoh daily 2-3 beers, followed by 2-3 shots of gin - sometimes more denies tremors we had lengthy discussion about apical thrombus seen on today's echo no new complaints Review of Systems Review of Systems: gen - no fevers cv - no orthopnea, no edema pulm - no cough GI - no nausea/emesis; did have bowel movement Physical Exam Physical Exam: gen - again looks better today neck - no JVD mouth - MMM heart - RRR, s1 s2, no murmur or obvious rub lungs - CTA b/l but airation in the bases decreased abd - soft NT ND BS+ ext - no edema, pulses 2+ b/l feet vasc - right radial artery without hematoma or aneurysm psych - awake, alert, oriented x 3 neuro - no tremors Results & Data Results & Data ([facility]) Vital Signs (Past 12 Hours) Vital Signs Temp Pulse Resp BP Pulse Ox O2 Del Method 09/11/22 19:00 36.8 C 79 18 120/89 95 Room Air 09/11/22 12:00 37.0 C 97 H 18 121/68 97 Room Air 09/11/22 11:00 36.8 C 97 H 18 125/66 96 Room Air 09/11/22 10:52 Room Air Laboratory Results Laboratory Results - last 24 hr 09/11/22 09/11/22 07:23 07:23 WBC 10.71 RBC 4.83 Hgb 14.4 Hct 43.6 MCV 90.3 MCH 29.8 MCHC 33.0 RDW Std Deviation 44.2 RDW Coeff of Jem 13.3 Plt Count 247 MPV 10.2 Immature Gran % (Auto) 0.3 Neut % (Auto) 74.4 Lymph % (Auto) 12.7 [place] % (Auto) 11.7 Eos % (Auto) 0.7 Baso % (Auto) 0.2 Neut # (Auto) 7.97 H Lymph # (Auto) 1.36 [place] # (Auto) 1.25 H Eos # (Auto) 0.08 Baso # (Auto) 0.02 Immature Gran # (Auto) 0.03 H Sodium 134 L Potassium 4.1 Chloride 100 Carbon Dioxide 26 Anion Gap 8 BUN 14 Creatinine 0.79 Est Cr Clr Drug Dosing 150.3 Est GFR ( Amer) 134.8 Est GFR (Non-Af Amer) 116.3 BUN/Creatinine Ratio 17.7 Glucose 85 Calcium 9.9 PG Care Time/CCT Total # of Minutes Spent Total Time Spent with Patient: Total time spent is greater than 50% in coordination of care (as documented) at patient's floor/unit and/or counseling patient: Coding Level of Care Code 08341 Subseq Hosp Care Lvl 3 Diagnoses STEMI (ST elevation myocardial infarction) I21.3 CAD (coronary artery disease) I25.10 Pericarditis I31.9 Alcohol use Z78.9 Anxiety F41.9 Hyperlipidemia E78.5 Prediabetes R73.03 Constipation K59.00 Leukocytosis D72.829 LV (left ventricular) mural thrombus following NM I23.6
[2022-09-12] MEDS: MoRPHine SULFATE 2 MG/ML CARP IV PRN (03:33)
[2022-09-12 07:33] LABS: Hematocrit (blood only) 42.3 % (40.1-51.0); Hemoglobin 14.2 g/dl (14.0-18.0); Mean Corpuscular Hemoglobin 29.8 pg (25.0-34.0); Mean Corpuscular Hgb Conc 33.6 g/dL (32.0-36.0); Mean Corpuscular Volume 88.9 fL (80.0-100.0); Platelet Count 274 K/uL (130-400); RDW Coefficient of Variation 13.2 % (11.5-14.5); RDW Standard Deviation 43.3 fL (36.4-46.3); Red Blood Count 4.76 M/uL (4.63-6.08); White Blood Count 9.04 K/ul (4.8-10.8)
[2022-09-12 07:52] LABS: Calcium 9.7 mg/dl (8.5-10.1); Creatinine Clr Calc Pharmacy 144.8 ml/min; Est GFR (African American) 132.8 ml/min; Est GFR (Non-African American) 114.6 ml/min; Potassium 4.2 mmol/L (3.5-5.1)
[2022-09-12] MEDS ORDERED: PANTOprazole 40 MG TAB PO SCH (09:00)
[2022-09-12] MEDS ORDERED: CLOPIDOGREL BISULFATE 75 MG TAB PO SCH (09:00)
[2022-09-12] MEDS: APIXABAN 5 MG TABLET PO SCH (09:10)
[2022-09-12] MEDS: FOLIC ACID 1 MG TAB PO SCH (09:10)
[2022-09-12] MEDS: METOPROLOL TARTRATE 50 MG TAB PO SCH (09:10)
[2022-09-12] MEDS: THIAMINE HCL 100 MG TAB PO SCH (09:10)
[2022-09-12] MEDS: LOSARTAN POTASSIUM 25 MG TAB PO SCH (09:10)
[2022-09-12] MEDS: ASPIRIN 81 MG ECTAB PO SCH (09:10)
[2022-09-12] MEDS: ATORVASTATIN 40 MG TAB PO SCH (09:10)
[2022-09-12] MEDS: COLCHICINE 0.6 MG TAB PO SCH (09:11)
[2022-09-12] MEDS: ESCITALOPRAM OXALATE 10 MG TAB PO SCH (09:11)
[2022-09-12] MEDS: POLYETHYLENE (MIRALAX) 17 GM PACK PO SCH (09:14)
--- NOTE | 2022-09-12 10:30 | Cardiology Progress Note ---
Date of Service September 12, 2022 Assessment & Plan (1) CAD (coronary artery disease): Plan: Post primary PCI to mid LAD with single JEAN, angioplasty to apical LAD No significant known culprit disease 2. Post [place] pericarditis 3. Dyslipidemia 4. Preserved LV function with apical wall motion abnormality 5. Apical LV thrombus Remains hemodynamically and electrically stable. No recurrent anginal symptoms. From a cardiac standpoint okay with discharge today. Home on: Triple therapy with apixaban 5 twice daily, clopidogrel 75, aspirin 81. Continue PPI Transition metoprolol to tartrate to metoprolol succinate 100 mg daily Continue current losartan 25 daily Continue atorvastatin 80 mg daily Continue colchicine 0.6 mg twice daily for next month then taper. Would avoid additional NSAIDs Follow-up with me in 1 week, will arrange cardiac rehab at that time. Repeat echo in 1 month. Likely anticoagulation for 3 months. Admission and Anticipated Discharge Date Admission Date: September 08, 2022 Subjective Feeling better today, up walking around the room. Still with occasional chest discomfort with deep breath then, certain positions. Denies significant shortness of breath. Telemetry reviewedsinus rhythm. Review of Systems Review of Systems: All systems reviewed & are unremarkable except as noted in HPI & below Physical Exam Physical Exam: General: Comfortable HEENT: Sclerae anicteric Lungs: Lungs clear Cardiac: Regular, no murmurs Vascular: right radial artery access site with no ecchymosis, hematoma. Distal pulse and sensation intact. Abdomen: Soft, nontender Extremities: Well perfused, no peripheral edema Neuro: Nonfocal Psych: Alert orient x3, normal affect and mood Results & Data ([facility]) Vital Signs (Past 12 Hours) Vital Signs Temp Pulse Pulse Resp BP Pulse Ox O2 Del Method 09/12/22 07:00 98.4 F 79 20 122/70 97 Room Air 09/12/22 03:00 98.6 F 87 16 112/77 92 Room Air 09/12/22 00:00 Room Air 09/12/22 00:00 82 09/11/22 23:47 98.4 F 81 16 122/79 92 Room Air PG Care Time/CCT Total # of Minutes Spent Total Time Spent with Patient: Total time spent is greater than 50% in coordination of care (as documented) at patient's floor/unit and/or counseling patient: Coding Level of Care Code 40101 Subseq Hosp Care Lvl 3 Diagnoses CAD (coronary artery disease) I25.10
--- NOTE | 2022-09-12 13:41 | Discharge Summary ---
Date of Service date of admission - September 08, 2022 date of discharge - September 12, 2022 Admission HPI Per Admitting Provider 37-year-old male with history of daily alcohol use and anxiety presents to the ER on 09/08/2022 with severe bilateral shoulder pain that awoke him from sleep around 4 AM. Initial troponin was 97.[address]KG had ST elevation inferiorly and laterally with reciprocal changes. [facility] status for acute STEMI where he received 1 drug-eluting stent to the LAD. By report he has heavy clot burden and has residual thrombus in the apical LAD. Patient was taken to the ICU post procedure. Principal Diagnosis 1. Newly-diagnosed coronary artery disease with anterior STEMI s/p JEAN 2. Post-ND pericarditis 3. LV thrombus 4. Alcohol abuse 5. Hyperlipidemia 6. Pre-diabetes Discharge Exam gen - looks very well, sitting in chair, NAD neck - no JVD mouth - MMM heart - RRR, s1 s2, no murmur or obvious rub lungs - CTA b/l but airation in the bases decreased - no change from prior exam abd - soft NT ND BS+ ext - no edema, pulses 2+ b/l feet vasc - right radial artery without hematoma or aneurysm psych - awake, alert, oriented x 3 neuro - no tremors or signs of etoh withdrawal Discharge Data Allergies Allergy/AdvReac Type Severity Reaction Status Date / Time Penicillins Allergy Unknown Verified 09/13/22 12:28 sertraline AdvReac Drowsy Verified 09/13/22 12:28 Consultations [facility] [place] Cardiology - Joseph Dempsey MD Cardiac Rehabilitation Consult [facility] Procedures Performed Operation Date: 09/08/22 08:45 Actual Procedures p Aspiration/PCI w/JEAN for Stemi - Joseph Dempsey MD s Cineradiography w/Routine Exam - Joseph Dempsey MD s Cath, Left with Cors and Vent - Joseph Dempsey MD s IVUS Coronary Single Vessel - Joseph Dempsey MD Findings: LM -normal caliber, no significant disease LAD -large caliber, 95% earlymid stenosis with LV thrombus burden and COLELEN II distal flow. Apical LAD 100% occluded. Medium D1, D2 without significant disease. Circumflex -medium caliber, angiographically normal RCA -dominant, large caliber, no significant disease LVEDP -11 Summary: 1. Anterior STEMI 2. 95% acute earlymid LAD with heavy thrombus burden and occluded LAD at the apex 3. No significant non-culprit vessel coronary artery disease 4. Normal intracardiac filling pressure 5. PCI of earlymid LAD with single drug-eluting stent (4.0 x 18 mm [place]; postdilated with 4.5 NC). Residual thrombus in apical LAD despite IC vasodilators/apical LAD angioplasty Ordered Studies Chest X-Ray 09/08/22 08:03 SINGLE VIEW CHEST CLINICAL HISTORY: Atypical chest pain. Diarrhea FINDINGS: An AP, portable, upright chest radiograph is obtained. No prior studies are available for comparison at the time of dictation. The examination is degraded by portable technique and apical lordotic positioning. The cardiomediastinal silhouette is unremarkable. The lungs and pleural spaces are clear. No pneumothorax is seen. The bony thorax is grossly intact. IMPRESSION: No acute cardiopulmonary abnormality. ACT 112: Negative or not required by law. Electronically signed by: Shen Smith M.D. 09/08/2022 8:42 AM Chest X-Ray 09/10/22 10:48 XR chest 1V portable HISTORY: 37 years-old Male hypoxia, recent ND acute hypoxia with chest pain COMPARISON: Chest radiograph 09/08/2022 TECHNIQUE: AP view of the chest FINDINGS: Cardiac silhouette is upper limits of normal in size. No pneumothorax or overt pulmonary edema. Trace pleural effusions with mild bibasilar airspace opacities. Bones appear grossly intact. IMPRESSION: Trace pleural effusions with bibasilar opacities suggestive of atelectasis versus an infectious or inflammatory pneumonitis, new from prior. ACT 112: Negative or not required by law. The above report was generated using voice recognition software. It may contain grammatical, syntax or spelling errors. Electronically signed by: Preston Mobley M.D. 09/10/2022 11:33 AM Echocardiogram #1 - 09/08/22: * EF 50-55% * akinetic apex with septal dyskinesis * grade 1 diastolic dysfunction * mild LVH * normal valve function Echocardiogram #2 - 09/09/22: * NO pericardial effusion Echocardiogram #3 - 09/11/22: * EF 50-55% * suspected LV thrombus * area of apical akinesis IMPROVED from 09/08/22 echo and 09/09/22 echo Hospital Course (1) STEMI (ST elevation myocardial infarction): 2nd to 95% early-mid LAD lesion and occluded distal LAD. PCI of earlymid LAD with single drug-eluting stent (4.0 x 18 mm [place]; postdilated with 4.5 NC). Residual thrombus in apical LAD (despite IC vasodilators/apical LAD angioplasty). RCA and left Cx without any disease. Cardiac catheterization performed by Dr Joseph Dempsey. Post-cath he was admitted [place] [id number]. He required nitroglycerin drip for chest pain post-cath. Chest pain early in his ICU stay was likely due to the residual apical LAD disease. The nitro drip was weaned off. He was initiated on aspirin, high-intensity statin (lipitor 80mg daily), metoprolol, ticagrelor, and losartan. ICU course was complicated by the development of post-ND pericarditis. See below in #3. Fortunately an echo performed at the time of his pericarditis diagnosis did not show any pericardial effusion. He was started on colchicine 0.6mg BID. Pleuritic chest pain gradually improved with such. On the patient's 3rd & final echocardiogram unfortunately an LV thrombus was suspected. Eliquis 5mg BID was added for the LV thrombus. He will likely need 3 months of Rx for such. At discharge he will take the following medications - * metoprolol succinate 100mg daily * losartan 25mg daily * clopidogrel 75mg daily * aspirin 81mg daily * Eliquis 5mg BID (for apical thrombus) * nitroglycerin SL - prn chest pain * atorvastatin 80mg daily To prevent gastric bleeding in the setting of "triple therapy" (asa, plavix, Eliquis) he was initiated on protonix 40mg daily. He will follow-up with Dr Dempsey in the [facility] Cardiology office within 2 weeks for recheck. He was counseled to perform light duties only upon return home. (2) CAD (coronary artery disease): see above in #1 (3) Pericarditis: On 09/09/22 the patient developed severe pleuritic chest pain that was much worse in a supine position. Post-ND pericarditis was suspected as the cause of his pleuritic chest pain. EKG 09/09/[address] segment elevation c/w such. Limited echos on 09/09 and 09/11 did not show pericardial effusion. He was initiated on colchicine 0.6mg BID by cardiology. His pleuritic chest pain gradually improved during the stay. At discharge he will take colchicine 0.6mg BID for at least 1 month. Close cardiology f/u will be needed. (4) LV (left ventricular) mural thrombus following ND: On 09/11/22 a f/u limited echo was obtained. The presence of an LV thrombus was suspected based on that echo. Dr Dempsey recommended Eliquis 5mg BID for such. He likely will be treated for 3 months with anticoagulation. Due to "triple therapy" (plavix, asa, Eliquis) use the patient was started on PPI prophylaxis. (5) Alcohol use: Patient admitted to a minimum of 6 alcoholic beverages on a daily basis prior to this admission. He may have had very mild alcohol withdrawal while hospitalized. He received gabapentin protocol. He did not require ativan. Thiamine/folic acid supplementation was given. A 30-day course of oral thiamine was recommended at discharge. The patient was counseled multiple times that alcohol abstinence was needed in light of aspirin/plavix/Eliquis use. We discussed the dangers of alcohol usage in this setting (ie - VERY HIGH risk of GI bleeding). Further, he was counseled that alcohol can lead to cardiomyopathy. (6) Anxiety: cont lexapro 10mg daily (7) Hyperlipidemia: LDL = 120 HDL = 55 Trigs = 99 High-intensity statin initiated -- lipitor 80mg daily LFTs wnl during the stay (8) Prediabetes: Hba1c 5.8%. Pt & his were counseled on such, and handouts on prediabetes & hemoglobin a1c levels were provided. f/u with PCP for this. dietary management only at this time. (9) Constipation: 2nd copious narcotics early in the stay -- resolved (10) Leukocytosis: likely 2nd to his acute ND as well as post-ND pericarditis. WBC count normalized prior to discharge. He did not have symptoms/signs of an infectious process. CXR was most c/w atelectasis. Total Time Total Time Spent Total Time Spent (In Minutes): 50 Discharge Plan Discharge Items Patient Disposition: Home - Self-Care Reason For Visit: Heart Attack Discharge Diagnosis: 1. Coronary Artery Disease resulting in a heart attack -- placement of stent by Dr Joseph Dempsey 2. Post-heart attack pericarditis 3. Thrombus of left ventricle (blood clot in the heart) 4. Pre-diabetes; hemoglobin a1c 5.8% 5. High cholesterol 6. Alcohol use Activity: As commented below Activity Comment: light activities only; no strenuous activities Lifting: No more than 10 pounds Sexual Activity: Wait until after follow-up appointment Exercise/Sports: Wait until after follow-up appointment Driving/Machine Use: Resume 3 days after discharge Non-emergency contact: Primary Care Provider and Metal Fabricator Call non-emergency contact if: you have any medication questions, your symptoms worsen and you have a fever Follow-up/Referrals: Ancelmo Dempsey MD [Physician] - 09/26/22 10:00 am (2 weeks ) Nash Finn DO [Primary Care Provider] - 09/18/22 9:15 am (Please arrive 15 minutes prior to appointment time. ) Diet: Heart Healthy Addtl Attending Provider Instructions: Mr Rene, You were hospitalized after having suffered a heart attack. Shortly after arriving here Dr Joseph Dempsey from [facility] took you for heart catheterization and found a blocked coronary artery. The specific artery blocked was the "LAD." (left anterior descending artery) He opened up the artery with a heart stent. Unfortunately, following your heart attack, you had 2 issues arise. The first was something called post-heart attack pericarditis. This occurs when the lining of the heart called the pericardium becomes inflamed/irritated due to the heart attack. This was the cause of your pain when you took deep breaths. Cardiology has started you on colchicine twice daily for this problem. Secondly, an echocardiogram later in your stay showed that you had developed a blood clot in the heart itself. This will be treated with Eliquis, a blood thinner. The blood clot developed because of the heart attack. Eliquis works very differently than the aspirin and plavix you will take for your heart stent. Finally, a screening blood test called the hemoglobin a1c showed that you are at the very beginning of "prediabetes." Please see handouts on the "a1c" and prediabetes. There is nothing to do at this time for this. This is something that you will be able to control with lifestyle alone. Recommendations - 1. Heart medications - * aspirin 81mg daily - start 09/13 * clopidogrel 75mg daily - start 09/13 * metoprolol succinate 100mg daily - start 09/13 * atorvastatin 80mg daily - start 09/13 * losartan 25mg daily - start 09/13 2. Blood thinner medication for the blood clot in the heart - * Eliquis 5mg twice daily - start evening of 09/12/22 * Eliquis increases the risk of bleeding from the nose, GI tract, bladder, etc * If you experience any bleeding from any location please contact your doctors right away 3. For pericarditis - * colchicine 0.6mg twice daily, first dose evening of 09/12/22 * most common side effect from colchicine - diarrhea * the pain you have with taking deep breaths should resolve fully over the next 5-7 days 4. If you ever experience chest pain, shortness of breath, shoulder pain, or any symptom of a heart attack please use your emergency nitroglycerin tablets * you can take 1 tablet under the tongue every 5 minutes; maximum 3 tablets in 15 minutes * if you ever take nitroglycerin please seek medical attention immediately 5. To protect your stomach from the aspirin, clopidogrel, and Eliquis please take - * pantoprazole 40mg once daily - start AM of 09/13 6. Due to the nature of your medications for your heart - in particular the aspirin/clopidogrel/Eliquis - you are at high risk of develop bleeding from your stomach if you drink alcohol. Please abstain 100% from alcohol if at all possi ble. If you need help abstaining from alcohol please talk with your family doctor about this. 7. For the next 3-4 days please continue to use your flutter valve a few times a day. Follow-up - see separate section Return to [facility] if - * you have any symptoms of recurrent heart attack - chest pain, shortness of breath, shoulder pain, nausea/vomiting, sweats, etc * you have to use nitroglycerin tablets * you have bleeding from any location * any other concern It was our pleasure to care for you at [facility]! Congratulations on your set of twins you will have in 2022. Best wishes for a great holiday season, Dr Pedro Samson Assistant Director Of Admissions Provider Instructions: Home Care following your heart attack: * Take your medications exactly as directed. Don't skip doses. * Remember that recovery after a heart attack takes time. 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 * Ask your doctor about joining a heart rehabilitation program. * Tell your doctor if you are feeling depressed. Feelings of sadness are common after a heart attack, but it is important that you speak to someone if you are feeling overwhelmed by these feelings. * If you are having chest pain, call 911 for an ambulance. Do NOT drive yourself to the hospital. * Ask your family members to learn CPR. * Learn to take your own blood pressure and pulse. Keep a record of your results. Ask your doctor when you should seek emergency medical attention. He or she will tell you which blood pressure reading is dangerous. Lifestyle Changes: * Maintain a healthy weight. Get help to lose any extra pounds. * Cut back on salt. * Limit canned, dried, packaged, and fast foods. * Don't add salt to your food. * Season foods with herbs instead of salt when you cook. * Break the smoking habit. Enroll in a stop-smoking program to improve your chances of success. * Limit fatty foods. * Ask your doctor about having your lipid levels checked regularly. * Build up your activity according to your doctor's recommendation. * Ask your doctor when it's okay to resume sexual activity. * Tell your doctor about any erectile dysfunction (ED) medication you are taking. Some ED medications are not safe if you take certain heart medications. * Try to manage stress. --------- Home care following your heart catheterization: * Do not drive or operate any motorized equipment for the next three days. * Limit stair usage (2 or 3 trips a day only) for the next three days. * Do not lift anything heavier than 10 [address] you see Dr Dempsey from cardiology. * Do not engage in vigorous exercise or any sports until cleared to do so by cardiology. * You may shower at this time. But do not immerse the right wrist for three days (no doing dishes, no tub bath, no pools, etc). Cleanse the site gently with soap and water. SPECIAL CARE INSTRUCTIONS: * You may take the dressing off your right wrist at this time. * After your procedure, it is normal to have a small bruise or small lump at the site. Examine your site daily for any change in the bruise or lump, redness, swelling, drainage or numbness. Notify your doctor if any change. BLEEDING: * If there is a small amount of bleeding at the site, lie down and apply firm pressure with a clean cloth for ten minutes. When the bleeding stops, lie quietly keeping the procedure limb straight for six hours. Notify your doctor as soon as possible. * If the bleeding does not stop after ten minutes or if there is a large amount of bleeding or spurting, call 911 immediately. Continue to lie down and hold firm pressure until help arrives. SKIN IRRITATION: * You may experience some redness and/or swelling in the area where radiation was administered. If any skin irritation occurs, please contact your family physician. Pending Studies at Discharge: No Stand-Alone Forms: My [facility] [employer], Smoking Cessation Medications and DC Order Prescriptions: New Eliquis 5 mg Tablet 5 mg PO BID Qty: 60 2RF clopidogrel 75 mg Tablet 75 mg PO QAM Qty: 30 11RF Rx Instructions: for your heart stent aspirin 81 mg Tablet,Delayed Release (Dr/Ec) 81 mg PO QAM Qty: 90 3RF Rx Instructions: for your heart losartan 25 mg Tablet 25 mg PO QAM Qty: 30 11RF Rx Instructions: for your heart thiamine HCl (vitamin B1) 100 mg Tablet 200 mg PO DAILY Qty: 60 0RF pantoprazole 40 mg Tablet,Delayed Release (Dr/Ec) 40 mg PO QAM Qty: 30 5RF colchicine [Colcrys] 0.6 mg Tablet 0.6 mg PO BID Qty: 60 0RF Rx Instructions: for pericarditis metoprolol succinate 100 mg tablet extended release 24 hr 100 mg PO DAILY Qty: 30 11RF Rx Instructions: for your heart nitroglycerin 0.4 mg tablet, sublingual 0.4 mg sublingual Q5M PRN (Reason: chest pain) Qty: 1 0RF Rx Instructions: max 3 doses in 24 hours Changed escitalopram oxalate 10 mg tablet 10 mg PO DAILY Qty: 30 0RF No Action atorvastatin 40 mg tablet 40 mg PO DAILY Qty: 30 11RF Rx Instructions: for high cholesterol. OK to take with colchicine Discharge Orders: Discharge Order (Routine); Ordered 09/12/22 Ordered By: John Ortiz/Other Patient Handouts: A1C, Pericarditis, Prediabetes, Heart Attack Angina Sx, CAD Admission Data Admit Date/Time: 09/08/22 10:41 Attending Provider: John Vasquez Admit Provider: Braydon Jacob Primary Care Provider: Nash Finn Other Providers: Gunnar Ohara Other Interventions: Discharge Summary Assessment (RN) Last Done: 09/12/22 13:57 Coding Level of Care Code D/C DAY MANAGEMENT >30 MINS Diagnoses STEMI (ST elevation myocardial infarction) I21.3 CAD (coronary artery disease) I25.10 Pericarditis I31.9 LV (left ventricular) mural thrombus following ND I23.6 Alcohol use Z78.9 Anxiety F41.9 Hyperlipidemia E78.5 Prediabetes R73.03 Constipation K59.00 Leukocytosis D72.829
[2022-09-12] MEDS ORDERED: GABAPENTIN 400 MG CAP PO SCH (19:00)
[2022-09-13] MEDS ORDERED: GABAPENTIN 100 MG CAP PO SCH (19:00)
== END 2022-09-12 15:10 | disposition home or self-care (01) | DRG 247 ==
LOC: ED 07:38 → CC 08:50 → 1E 08:57 → SUATTDRO 10:41 → 1E 10:41 → 2E 09-10 21:15